=== PATIENT | male | born 1970 | race Caucasian/White ===

== ENCOUNTER 2019-02-27 18:29 | Inpatient (IN) | payer MEDICAID ==
[~2019-02-27] VITALS: Ht 175.3 cm; Wt 69.9 kg
[2019-02-27 18:47] VITALS: BP 149/95
--- NOTE | 2019-02-27 19:22 | NUR ---
Patient transferred to bed 1 via wheelchair by tech. RN evaluating patient at bedside.
--- NOTE | 2019-02-27 19:25 | NUR ---
48 Y/O M PRESENTED TO ED WITH C/O DIZZINESS AND DOUBLE VISION. SYMPTOMS STARTED THIS MORNING. PER PT "MY EQUILIBRIUM IS JUST OFF AND I HAVE MILD RINGING IN MY EARS." AAOX4. SPEECH CLEAR. GCS 15. +CMS. PT HAS HX OF SEIZURES. SEIZURES PRECAUTIONS IN PLACE. BEDRIALS X2 UP. ERMD NOTIFIED. WILL CONTINUE TO MONITOR.
--- NOTE | 2019-02-27 20:10 | NUR ---
PT TAKEN TO CT.
--- NOTE | 2019-02-27 20:35 | NUR ---
PT RETURNED FROM CT.
[2019-02-27 20:36] LABS: BASOPHILS # (AUTO) 0.1 K/uL (0.00-0.22); BASOPHILS % (AUTO) 0.5 % (0.0-2.0); EOSINOPHILS # (AUTO) 0.4 K/uL (0-0.4); EOSINOPHILS % (AUTO) 1.9 % (0.0-4.0); HEMATOCRIT 40.4 % (36-52); HEMOGLOBIN 13.6 g/dL (12.0-18.0); LYMPHOCYTES # (AUTO) 3.4 K/uL (2.0-11.5); LYMPHOCYTES % (AUTO) 16.8 % (20.5-51.1); MEAN CORPUSCULAR HEMOGLOBIN 29 pg (27-31); MEAN CORPUSCULAR HGB CONC 34 g/dL (33-37); MEAN CORPUSCULAR VOLUME 86.6 fL (80-94); NEUTROPHILS # (AUTO) 15.1 K/uL (1.8-7.7); NEUTROPHILS % (AUTO) 75.8 % (42.2-75.2); PLATELET COUNT (AUTO) 239 K/uL (140-450); RED BLOOD CELL COUNT(AUTO) 4.66 MIL/uL (4.20-6.10); RED CELL DISTRIBUTION WIDTH 14.2 % (11.6-13.7); WHITE BLOOD COUNT (AUTO) 19.9 K/uL (4.8-10.8)
[2019-02-27 20:45] LABS: ANION GAP 13.8 (8-16); CARBON DIOXIDE 25.7 mmol/L (21-32); CREATININE 1.2 mg/dL (0.7-1.3); POTASSIUM 3.5 mmol/L (3.5-5.1)
--- NOTE | 2019-02-27 20:50 | NUR ---
PT AWAKE. LYING IN BED. VSS AT THIS TIME. PT C/O BODY SHAKES. DR. MAYKEL ANTHONY. WILL CONTINUE TO MONITOR.
[2019-02-27 20:52] LABS: ALBUMIN 3.7 g/dL (3.4-5.0); TOTAL BILIRUBIN 0.5 mg/dL (0.0-1.0)
[2019-02-27] MEDS ORDERED: LORazepam 2 MG/ML VIAL IVP ONE (20:55)
[2019-02-27 20:57] LABS: APPEARANCE,URINE CLEAR (CLEAR); BILIRUBIN,URINE NEGATIVE (NEGATIVE); BLOOD, URINE NEGATIVE (NEGATIVE); COLOR,URINE YELLOW (YELLOW); LEUKOCYTE ESTERASE ,URINE NEGATIVE (NEGATIVE); NITRITE, URINE NEGATIVE (NEGATIVE); UGLUCOSE NEGATIVE (NEGATIVE)
[2019-02-27 21:00] LABS: PROTHROMBIN TIME 9.9 secs (10.8-13.4)
[2019-02-27] MEDS ORDERED: NACL 0.9% 1,000 ML IV ONE (21:30)
[2019-02-27 21:50] LABS: BARBITURATE, URINE NEG. ng/ml (NEG <=200); BENZODIAZEPINE, URINE NEG. ng/mL (NEG <=200); CANNABINOID, URINE NEG. ng/mL (NEG <=50); COCAINE, URINE NEG. ng/mL (NEG <=300); OPIATE, URINE NEG. ng/mL (NEG <=2000); PHENCYCLIDINE SCREEN,URINE NEG. ng/mL (NEG <=25)
--- NOTE | 2019-02-27 21:55 | NUR ---
DR. BRAR GAVE PERMISSION FOR PT TO EAT. MEAL PROVIDED.
[2019-02-27] MEDS ORDERED: LEVE1000 PO (23:18)
[2019-02-27] MEDS ORDERED: CITA40TA13 PO (23:23)
[2019-02-27] MEDS ORDERED: CLON2TAB PO (23:23)
--- NOTE | 2019-02-27 23:46 | NUR ---
PT AWAKE. VSS AT THIS TIME. WILL CONTINUE TO MONITOR.
[2019-02-27] MEDS ORDERED: ACETAMINOPHEN 325 MG TAB PO PRN (23:55)
[2019-02-27] MEDS ORDERED: ONDANSETRON 4 MG/2 ML VIAL IM/IVP PRN (23:55)
[2019-02-27] MEDS ORDERED: HYDROcodone/APAP 5/325 MG 1 TAB TAB PO PRN (23:55)
[2019-02-27] MEDS ORDERED: DOCUSATE SODIUM 100 MG GELCAP PO PRN (23:55)
[2019-02-27] MEDS ORDERED: LORazepam 2 MG/ML VIAL IM/IVP PRN (23:55)
--- NOTE | 2019-02-28 00:06 | NUR ---
Patient will be admitted to care of Dr. Ervin. Admited to MST. Will go to room 105B. Belongings list completed. VSS at time of transfer. Report to CAM Giles. Transfer of care at this time.
[2019-02-28] MEDS ORDERED: ASPIRIN 81 MG TAB.CHEW PO SCH (00:10)
[2019-02-28 00:15] VITALS: BP 121/76
[2019-02-28] MEDS ORDERED: ATORVASTATIN 80 MG TAB PO SCH (00:15)
[2019-02-28] MEDS ORDERED: CLOPIDOGREL 75 MG TAB PO SCH (00:15)
--- NOTE | 2019-02-28 00:15 | NUR ---
PT ARRIVED TO UNIT VIA GURNEY AND AMBULATED TO BED WITH ASSISTANCE- UNSTEADY, DIZZY. RECEIVED REPORT FROM ER NURSE AT BEDSIDE. PT AOX4, ON ROOM AIR WITH LEFT AC #20G. DISCUSSED PLAN OF CARE AND PT VERBALIZED UNDERSTANDING. NO S/S OF RESPIRATORY DISTRESS OR DISCOMFORT NOTED AT THIS TIME. VITAL SIGNS TAKEN AND TOLERATED WELL. MRSA SWAB COLLECTED. BED IN LOWEST POSITION, BED BREAKS ON, BOTH SIDE RAILS UP AND BOTH FALL AND SEIZURE PRECAUTIONS ARE IN PLACE. BEDSIDE TABLE AND CALL LIGHT ARE WITHIN REACH. EDUCATED PT MOBILE HOME LABORER LIGHT, BED AND URINAL USE. WILL CONTINUE TO MONITOR.
[2019-02-28] MEDS ORDERED: PIPER/TAZO 3.375GM/D5W PREMIX 50 ML IV SCH (00:30)
[2019-02-28] MEDS: NACL 0.9% 1,000 ML IV SCH ×2 (00:47→17:47)
--- NOTE | 2019-02-28 00:48 | NUR ---
SCHEDULED MEDICATIONS GIVEN AND TOLERATED WELL. NEW BAG OF IVF HUNG AND TOLERATED WELL. NO S/S OF RESPIRATORY DISTRESS OR DISCOMFORT NOTED AT THIS TIME. WILL CONTINUE TO MONITOR.
[2019-02-28] MEDS ORDERED: MECLIZINE 25 MG TAB PO SCH (01:00)
--- NOTE | 2019-02-28 01:01 | NUR ---
SCHEDULED MEDICATIONS GIVEN AND TOLERATED WELL. NO S/S OF RESPIRATORY DISTRESS OR DISCOMFORT NOTED AT THIS TIME. WILL CONTINUE TO MONITOR.
[2019-02-28] MEDS ORDERED: PIPERACILLIN/TAZOBACTAM 3.375 GM VIAL IV ONE ×2 (01:05→05:18)
[2019-02-28 01:59] LABS: MAGNESIUM 1.5 mg/dL (1.8-2.4); PHOSPHORUS 3.5 mg/dL (2.5-4.9); THYROID STIMULATING HORMONE 1.35 uIU/mL (0.34-3.74)
[2019-02-28] MEDS ORDERED: LORazepam 2 MG/ML VIAL IVP PRN (02:00)
--- NOTE | 2019-02-28 02:00 | NUR ---
PT SLEEPING IN BED. NO S/S OF RESPIRATORY DISTRESS OR DISCOMFORT NOTED AT THIS TIME. WILL CONTINUE TO MONITOR.
[2019-02-28 04:00] VITALS: BP 98/55
[2019-02-28] MEDS ORDERED: MAG SULF 2000 MG/WATER PREMIX 100 ML IV ONE (04:00)
--- NOTE | 2019-02-28 04:00 | NUR ---
SCHEDULED MEDICATION MAGNESIUM SULFATE IV GIVEN AND TOLERATING WELL. WILL INFUSE SECOND BAG SOON FIRST BAG IS COMPLETED AND SCHEDULED ZOSYN 0600 IS COMPLETED.
[2019-02-28] MEDS: PIPER/TAZO 3.375GM/D5W PREMIX 50 ML IV SCH ×3 (05:21→17:44)
--- NOTE | 2019-02-28 05:21 | NUR ---
SCHEDULED MEDICATION ZOSYN GIVEN AND TOLERATED WELL. NO S/S OF RESPIRATORY DISTRESS OR DISCOMFORT NOTED AT THIS TIME. WILL CONTINUE TO MONITOR.
--- NOTE | 2019-02-28 05:40 | NUR ---
SECOND BAG OF MAGNESIUM SULFATE GIVEN AND TOLERATING WELL. NO S/S OF RESPIRATORY DISTRESS OR DISCOMFORT NOTED AT THIS TIME. WILL CONTINUE TO MONITOR.
--- NOTE | 2019-02-28 07:33 | NUR ---
ENDORSED TO DAY SHIFT NURSE YUAN-RN FOR CONTINUITY OF CARE.
--- NOTE | 2019-02-28 07:34 | NUR ---
REPORT RECEIVED FROM HORSE RACE TIMER, PT SLEEPING QUIETLY IN NAD, AROUSES EASILY, DENIES PAIN, RESP EVEN UNLABORED, SKIN WARM DRY COLOR WNL, DENIES PAIN, POC REVIEWED, ALL SAFETY MEASURES IN PLACE.
[2019-02-28 07:38] LABS: BASOPHILS # (AUTO) 0.1 K/uL (0.00-0.22); BASOPHILS % (AUTO) 0.7 % (0.0-2.0); EOSINOPHILS # (AUTO) 0.6 K/uL (0-0.4); EOSINOPHILS % (AUTO) 4.9 % (0.0-4.0); HEMATOCRIT 37.2 % (36-52); HEMOGLOBIN 12.5 g/dL (12.0-18.0); LYMPHOCYTES # (AUTO) 3.5 K/uL (2.0-11.5); LYMPHOCYTES % (AUTO) 26.8 % (20.5-51.1); MEAN CORPUSCULAR HEMOGLOBIN 29 pg (27-31); MEAN CORPUSCULAR HGB CONC 34 g/dL (33-37); MEAN CORPUSCULAR VOLUME 87.4 fL (80-94); MONOCYTES # (AUTO) 0.7 K/uL (0.8-1.0); MONOCYTES % (AUTO) 5.6 % (1.7-9.3); NEUTROPHILS # (AUTO) 8.1 K/uL (1.8-7.7); PLATELET COUNT (AUTO) 210 K/uL (140-450); RED BLOOD CELL COUNT(AUTO) 4.26 MIL/uL (4.20-6.10); RED CELL DISTRIBUTION WIDTH 14.3 % (11.6-13.7); WHITE BLOOD COUNT (AUTO) 13.1 K/uL (4.8-10.8)
[2019-02-28 08:00] VITALS: BP 110/65
[2019-02-28 08:02] LABS: ANION GAP 12.9 (8-16); CARBON DIOXIDE 25.3 mmol/L (21-32); CREATININE 1.1 mg/dL (0.7-1.3); POTASSIUM 3.2 mmol/L (3.5-5.1)
--- NOTE | 2019-02-28 08:41 | NUR ---
US TECH AT BEDSIDE FOR CAROTID US.
[2019-02-28] MEDS: ASPIRIN 81 MG TAB.CHEW PO SCH (09:30)
[2019-02-28] MEDS: CITALOPRAM 20 MG TAB PO SCH (09:30)
[2019-02-28] MEDS: MECLIZINE 25 MG TAB PO SCH ×3 (09:31→17:44)
[2019-02-28] MEDS: levETIRAcetam 500 MG TAB PO SCH ×2 (09:31→20:21)
[2019-02-28] MEDS: LACTOBACILLUS RHAMNOSUS GG 1 EACH CAP PO SCH (09:31)
[2019-02-28] MEDS: NICOTINE TRANSD SYS 21 MG/24 HR PATCH TD SCH (09:31)
[2019-02-28] MEDS: CLOPIDOGREL 75 MG TAB PO SCH (09:31)
[2019-02-28] MEDS: clonazePAM 0.5 MG TAB PO SCH ×2 (09:36→20:21)
--- NOTE | 2019-02-28 11:45 | NUR ---
FRIENDS AT BEDSIDE, PT TALKING WITH THEM IN NO ACUTE DISTRESS, PT REQUESTS TO HAVE HIS EMERGENCY CONTACT CHANGED TO HIS FRIEND FUAD MARTI AND JOCELYN FRIEDMAN, ADMITTING NOTIFIED. KEEP NEXT OF KIN MOTHER. FUAD KIDD [phone], JOCELYN FRIEDMAN [phone].
[2019-02-28 12:00] VITALS: BP 98/60
--- NOTE | 2019-02-28 13:22 | NUR ---
PT SLEEPING QUIETLY IN NAD, AROUSES EASILY, DENIES PAIN OR DISCOMFORT, DENIES ANY OTHER NEEDS WILL CONTINUE TO MONTIOR.
[2019-02-28 13:44] LABS: CHOL/HDL RATIO 4.3 (1-4.5)
--- NOTE | 2019-02-28 15:10 | NUR ---
DR LANDIN AT BEDSIDE
[2019-02-28 16:00] VITALS: BP 112/67
--- NOTE | 2019-02-28 16:43 | NUR ---
PT TO CT SCAN IN WHEELCHAIR
--- NOTE | 2019-02-28 16:47 | NUR ---
4 UNITS INSULIN GIVEN FOR BS 219, GT FEED ONGOING, NYSTATIN GIVEN PT CLEANING HER MOUTH WITH SPONGE ON HER OWN, APPEARS COMFORTABLE, BILAT HEELS FLOATING WITH HEEL PROTECTORS. Addendum: 02/28/19 at 1752 by Valencia Lezama RN DISREGARD ABOVE NOTE, WRONG PT
[2019-02-28] MEDS ORDERED: POTASSIUM CHLORIDE 10 MEQ TABER PO SCH ×2 (17:00→21:00)
--- NOTE | 2019-02-28 17:30 | NUR ---
PT BACK FROM CT.
--- NOTE | 2019-02-28 17:52 | NUR ---
SCHEDULED MEDS GIVEN, PT STATES DIZZINESS HAS IMPROVED SOME WHEN HE GETS UP. PT NOW SITTING UP TO EAT DINNER.
--- NOTE | 2019-02-28 19:16 | NUR ---
REPORT GIVEN TO ELECTRONICS MECHANIC NURSE, PT IN STABLE CONDITION.
--- NOTE | 2019-02-28 19:20 | NUR ---
PT. AWAKE AND WATCHING TV. ABLE TO CARRY CONVERSATION WITH ME. CALL LIGHT WITH IN REACH. NO COMPLAINT DONE OF DIZZINESS OR NAUSEA. ENCOURAGED TO USE CALL LIGHT FOR HELP OR IF IN PAIN. TELEMETRY MONITORING. SIDE RAILS OF BED PADDED FOR SEIZURE [id number]. CARDIAC TELEMETRY MONITORING.
[2019-02-28 20:10] VITALS: BP 121/73
[2019-02-28] MEDS: ATORVASTATIN 80 MG TAB PO SCH (20:36)
--- NOTE | 2019-02-28 20:37 | NUR ---
LIPITOR 80 MG. P.O. NOT SCHEDULED TONIGHT BUT FOR 9 AM.
[2019-03-01] VITALS: BP 112/61
--- NOTE | 2019-03-01 | NUR ---
SLEEPING WELL. NO RESTLESSNESS. CALL LIGHT WITH IN REACH.
[2019-03-01] MEDS: PIPER/TAZO 3.375GM/D5W PREMIX 50 ML IV SCH ×3 (00:14→12:56)
[2019-03-01] MEDS: NACL 0.9% 1,000 ML IV SCH (00:23)
--- NOTE | 2019-03-01 02:01 | NUR ---
SLEEPING. NO RESTLESSNESS NOTED. CALL LIGHT WITH IN REACH.
[2019-03-01 04:18] VITALS: BP 110/72
--- NOTE | 2019-03-01 05:11 | NUR ---
BEEN SLEEPING GOOD THIS SHIFT. WAKES UP EASILY WHEN TOUCHED OR CALLED BY NAME. NO COMPLAINTS DONE OF DIZZINESS. A/O X 4. ROM X 4. ABLE TO HOLD A CONVERSATION WELL.TELEMETRY MONITORING. WILL ENDORSE TO AM RN FOR CONTINUITY OF CARE.
--- NOTE | 2019-03-01 07:14 | NUR ---
ENDORSED TO AM RN FOR CONTINUITY OF CARE. ABLE TO VERBALIZE NEEDS WELL. A/O X 4. SLEPT WELL THIS SHIFT. NO COMPLAINTS DONE.
--- NOTE | 2019-03-01 07:15 | NUR ---
REPORT RECEIVED FROM TOASTER OPERATOR NURSE, PT SLEEPING QUIETLY IN NAD, RESP EVEN UNLABORED, SKIN WARM DRY COLOR WNL, PT AROUSES EASILY, DENIES PAIN OR DISCOMFORT, POC REVIEWED, DENIES ANY IMMEDIATE NEEDS, WILL CONTINUE TO MONITOR.
[2019-03-01 07:43] LABS: BASOPHILS # (AUTO) 0.1 K/uL (0.00-0.22); BASOPHILS % (AUTO) 1.1 % (0.0-2.0); EOSINOPHILS # (AUTO) 0.5 K/uL (0-0.4); EOSINOPHILS % (AUTO) 5.3 % (0.0-4.0); HEMATOCRIT 39.6 % (36-52); HEMOGLOBIN 13.4 g/dL (12.0-18.0); LYMPHOCYTES # (AUTO) 3.4 K/uL (2.0-11.5); LYMPHOCYTES % (AUTO) 32.8 % (20.5-51.1); MEAN CORPUSCULAR HEMOGLOBIN 29 pg (27-31); MEAN CORPUSCULAR HGB CONC 34 g/dL (33-37); MEAN CORPUSCULAR VOLUME 87.2 fL (80-94); MONOCYTES # (AUTO) 0.6 K/uL (0.8-1.0); MONOCYTES % (AUTO) 5.6 % (1.7-9.3); NEUTROPHILS # (AUTO) 5.7 K/uL (1.8-7.7); NEUTROPHILS % (AUTO) 55.2 % (42.2-75.2); PLATELET COUNT (AUTO) 212 K/uL (140-450); RED BLOOD CELL COUNT(AUTO) 4.54 MIL/uL (4.20-6.10); RED CELL DISTRIBUTION WIDTH 14.3 % (11.6-13.7); WHITE BLOOD COUNT (AUTO) 10.3 K/uL (4.8-10.8)
--- NOTE | 2019-03-01 07:45 | NUR ---
PATIENT HAS BEEN SCREENED AND CATEGORIZED LOW NUTRITION RISK. PATIENT WILL BE SEEN WITHIN 7 DAYS OF ADMISSION. 03/06/19
[2019-03-01 07:50] LABS: ANION GAP 12.7 (8-16); CREATININE 1.1 mg/dL (0.7-1.3); POTASSIUM 3.7 mmol/L (3.5-5.1)
[2019-03-01 07:53] LABS: MAGNESIUM 1.7 mg/dL (1.8-2.4); PHOSPHORUS 2.7 mg/dL (2.5-4.9)
[2019-03-01 08:00] VITALS: BP 120/68
[2019-03-01] MEDS ORDERED: MAG SULF 2000 MG/WATER PREMIX 100 ML IV ONE (08:45)
[2019-03-01] MEDS ORDERED: MAGNESIUM SULFATE 4GM in STERILE WATER 100 ML PREMIX IV SCH (09:00)
[2019-03-01] MEDS: NICOTINE TRANSD SYS 21 MG/24 HR PATCH TD SCH (09:01)
[2019-03-01] MEDS: LACTOBACILLUS RHAMNOSUS GG 1 EACH CAP PO SCH (09:02)
[2019-03-01] MEDS: CLOPIDOGREL 75 MG TAB PO SCH (09:02)
[2019-03-01] MEDS: ASPIRIN 81 MG TAB.CHEW PO SCH (09:02)
[2019-03-01] MEDS: CITALOPRAM 20 MG TAB PO SCH (09:02)
[2019-03-01] MEDS: ATORVASTATIN 80 MG TAB PO SCH (09:02)
[2019-03-01] MEDS: levETIRAcetam 500 MG TAB PO SCH (09:02)
[2019-03-01] MEDS: MECLIZINE 25 MG TAB PO SCH ×2 (09:02→13:00)
--- NOTE | 2019-03-01 09:09 | NUR ---
AM MEDS GIVEN, PT CHANTELL PILLS WELL, NICOTINE PATCH APPLIED TO RIGHT UPPER ARM, OLD PATCH NO LONGER ATTACHED ON LEFT ARM.
[2019-03-01] MEDS: clonazePAM 0.5 MG TAB PO SCH (09:11)
--- NOTE | 2019-03-01 10:55 | NUR ---
PATIENT CARRIER AT BEDSIDE
--- NOTE | 2019-03-01 12:45 | NUR ---
ECHO CARDIOGRAM AT BEDSIDE
--- NOTE | 2019-03-01 14:16 | NUR ---
DR LANDIN AT BEDSIDE.
--- NOTE | 2019-03-01 14:24 | NUR ---
PER DR LANDIN, EEG WAS REVIEWED, PT IS OK TO DISCHARGE PER NEUROLOGY CONSULT, WILL NOTIFY DR MCCARTY.
--- NOTE | 2019-03-01 14:26 | NUR ---
PT UP OUT OF BED WITH OUT PROBLEM, PT AMBULATED AROUND THE HALLWAY WITH BRISK STEADY GAIT, PT DENIES FEELING LIGHT HEADED OR DIZZY, DENIES SEEING DOUBLE VISION, WILL NOTIFY MD.
[2019-03-01] MEDS ORDERED: AZIT500T4 PO (15:34)
[2019-03-01] MEDS ORDERED: CLOP75TA55 PO (15:34)
[2019-03-01] MEDS ORDERED: AMOX-999 PO (15:34)
[2019-03-01] MEDS ORDERED: LIP80 PO (15:34)
[2019-03-01] MEDS ORDERED: LACT10CA PO (15:34)
[2019-03-01] MEDS ORDERED: NICO-532 TD (15:34)
[2019-03-01] MEDS ORDERED: ASPI81CT95 PO (15:34)
[2019-03-01] MEDS ORDERED: AZIT250T4 PO (15:34)
--- NOTE | 2019-03-01 16:08 | NUR ---
DC ORDER RECEIVED, PT MADE AWARE OF PLAN, IV DC'D, CATH TIP INTACT, BLEEDING CONTORLLED, PT UP CHANGING CLOTHES WITHOUT PROBLEM.
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
[2019-03-03 06:12] LABS: T4 (THYROXINE) 5.5 ug/dL (4.5-12.0)
== END 2019-03-01 17:10 | disposition home or self-care (01) | DRG 48 ==
LOC: MED 18:29 → MTU 23:54
PROVIDERS: ADMIT General Practice; ATTEND General Practice
DX: G90.8 Other disorders of autonomic nervous system (principal); J18.9 Pneumonia, unspecified organism; G45.9 Transient cerebral ischemic attack, unspecified; E83.42 Hypomagnesemia; E86.0 Dehydration; F17.210 Nicotine dependence, cigarettes, uncomplicated; M54.81 Occipital neuralgia; G40.909 Epilepsy, unspecified, not intractable, without status epilepticus; Z79.899 Other long term (current) drug therapy; Z71.6 Tobacco abuse counseling
CPT/HCPCS: 36415; 70450; 70460; 71045; 80048; 80053; 80305; 81003; 82150; 83036; 83605; 83690; 83735; 83880; 84100; 84134; 84436; 84443; 84484; 85025; 85610; 85730; 86592; 86886; 86900; 86901; 87040; 87070; 87081; 87205; 89220; 93005; 93880; 95816; 96374; 99285; G0482; J2060; J2543; J3475; J7030; J7060; J8597; Q0092

== ENCOUNTER 2019-04-15 11:18 | Emergency (ER) | payer MEDICAID ==
[~2019-04-15] VITALS: Ht 175.3 cm; Wt 68.3 kg
[~2019-04-15 11:18] MED LIST: AMOX-999 PO; ASPI81CT95 PO; AZIT250T4 PO; AZIT500T4 PO; CITA40TA13 PO; CLON2TAB PO; CLOP75TA55 PO; LACT10CA PO; LEVE1000 PO; LIP80 PO; NICO-532 TD
[2019-04-15 11:34] VITALS: BP 113/75
--- NOTE | 2019-04-15 12:00 | NUR ---
IV STARTED TO L AC 20G, PT TOLERATED PROCEDURE WELL. LABS WERE DRAWN FROM IV SITE
--- NOTE | 2019-04-15 12:10 | NUR ---
C/O GENERALIZED WEAKNESS/UNSTEADY GAIT STARTING TODAY. PT WAS BROUGHT IN BY FRIEND WHO REPORTS HE WAS ADMITTED LAST MONTH FOR THE SAME SYMPTOMS AND WAS TOLD HE HAD A "MINI STROKE". NO UNILATERAL WEAKNESS NOTED, NO FACIAL DROOP NOTED. PT IS A & O X4 AND ANSWERING QUESTIONS APPROPRIATELY. PT STATES HE RECENTLY RAN OUT OF HIS MEDICATIONS 4 DAYS AGO, INCLUDING CLONAZEPAM AND KEPPRA. PT STATES HE HAS A HX OF SEIZUREZ, LAST ONE WAS LAST NIGHT - "PETITE MAL". PT STATES HE IS A RECOVERING ALCOHOLIC AND CURRENTLY LIVES IN A 2ND STAGE REHAB FACILITY. PT DENIES RECENT DRUG/ALCOHOL USE. BED IN LOW POSITION, SEIZURE PRECAUTIONS IMPLEMENTED. PT POSITIONGED FOR COMFORT AND SIDE RAILS UP X2 WITH SEIZURE PADS IN PLACE.
[2019-04-15] MEDS ORDERED: LORazepam 2 MG/ML VIAL IVP ONE (12:15)
[2019-04-15] MEDS ORDERED: NACL 0.9% 1,000 ML IV ONE ×2 (12:15→14:45)
--- NOTE | 2019-04-15 12:15 | NUR ---
DR. TERRY AT BEDSIDE EVALUATING PT
[2019-04-15] MEDS ORDERED: levETIRAcetam 500 MG in NACL 0.9% 100 ML IV STA (12:30)
[2019-04-15 12:35] LABS: BASOPHILS # (AUTO) 0.1 K/uL (0.00-0.22); BASOPHILS % (AUTO) 0.8 % (0.0-2.0); EOSINOPHILS # (AUTO) 0.3 K/uL (0-0.4); EOSINOPHILS % (AUTO) 2.7 % (0.0-4.0); HEMATOCRIT 40.5 % (36-52); HEMOGLOBIN 13.5 g/dL (12.0-18.0); LYMPHOCYTES # (AUTO) 3.4 K/uL (2.0-11.5); LYMPHOCYTES % (AUTO) 31.2 % (20.5-51.1); MEAN CORPUSCULAR HEMOGLOBIN 30 pg (27-31); MEAN CORPUSCULAR HGB CONC 33 g/dL (33-37); MEAN CORPUSCULAR VOLUME 90.2 fL (80-94); MONOCYTES # (AUTO) 0.4 K/uL (0.8-1.0); MONOCYTES % (AUTO) 4.1 % (1.7-9.3); NEUTROPHILS # (AUTO) 6.6 K/uL (1.8-7.7); NEUTROPHILS % (AUTO) 61.2 % (42.2-75.2); PLATELET COUNT (AUTO) 237 K/uL (140-450); RED BLOOD CELL COUNT(AUTO) 4.49 MIL/uL (4.20-6.10); WHITE BLOOD COUNT (AUTO) 10.8 K/uL (4.8-10.8)
[2019-04-15 12:48] LABS: ANION GAP 13.1 (8-16); CARBON DIOXIDE 26.1 mmol/L (21-32); CREATININE 1.1 mg/dL (0.7-1.3); POTASSIUM 3.2 mmol/L (3.5-5.1)
[2019-04-15] MEDS ORDERED: levETIRAcetam 100 MG/ML VIAL IV ONE (12:53)
[2019-04-15 12:54] LABS: ALBUMIN 3.7 g/dL (3.4-5.0); TOTAL BILIRUBIN 0.2 mg/dL (0.0-1.0)
--- NOTE | 2019-04-15 14:17 | NUR ---
PT ASLEEP IN BED, AROUSABLE TO VERBAL STIMULI. PT STATES 0/10 PAIN AT THIS TIME.
--- NOTE | 2019-04-15 14:25 | NUR ---
PT BP 93/46, PT IS ASLEEP BUT IS AROUSABLE TO VERBAL STIMULI. DR. TERRY AWARE, AND WILL ORDER 1L NS BOLUS
--- NOTE | 2019-04-15 15:00 | NUR ---
PT IS AWAKE AND TALKING ON CELL PHONE
--- NOTE | 2019-04-15 16:31 | NUR ---
PT RESTING IN BED, AROUSABLE TO VERBAL STIMULI.
[2019-04-15 19:00] VITALS: BP 103/61
--- NOTE | 2019-04-15 19:00 | NUR ---
Patient discharged with v/s stable. Written and verbal after care instructions given and explained. Patient alert, oriented and verbalized understanding of instructions. Ambulatory with steady gait. All questions addressed prior to discharge. ID band removed. Patient advised to follow up with PMD. Rx of keeduard given. Patient educated on indication of medication including possible reaction and side effects. Opportunity to ask questions provided and answered.
[2019-04-15] MEDS ORDERED: levETIRAcetam 500 MG in NACL 0.9% 100 ML IV SCH (21:00)
== END 2019-04-15 19:00 | disposition home or self-care (01) ==
LOC: MED 11:18
DX: F10.129 Alcohol abuse with intoxication, unspecified (principal); G40.909 Epilepsy, unspecified, not intractable, without status epilepticus; Z86.73 Personal history of transient ischemic attack (TIA), and cerebral infarction without residual deficits; Z79.2 Long term (current) use of antibiotics; Z79.899 Other long term (current) drug therapy; Z79.82 Long term (current) use of aspirin; Z91.14 Patient's other noncompliance with medication regimen
CPT/HCPCS: 36415; 80053; 81002; 85025; 96365; 96375; 99283; G0482; J1953; J2060; J7030

== ENCOUNTER 2019-05-31 21:20 | Emergency (ER) | payer MEDICAID ==
[~2019-05-31] VITALS: Ht 175.3 cm; Wt 70.3 kg
[2019-05-31 21:28] VITALS: BP 139/72
--- NOTE | 2019-05-31 21:29 | NUR ---
PLACED INTO CHAIR, PENDING ED BED PLACEMENT. REMAINS ON PORTABLE VS MONITOR.
--- NOTE | 2019-05-31 22:16 | NUR ---
PT PLACED IN ER BED 7, SEIZURE PRECAUTIONS IN PLACE.
--- NOTE | 2019-05-31 22:17 | NUR ---
48/M PRESENTED TO ED C/O ETOH. STATES DRANK 2 BUDLIGHT BEERS TO CALM NERVES. SAYS HE FEELS "SHAKY". CMS INTACT. VSS. MED HX EPILEPSY, CVA X 2 MOS AGO. RX KEPPRA, LORAZEPAM, GABAPENTIN BUT STATES HE HAS NOT BEEN TAKING MEDICATIONS IN THE LAST 3 DAYS DUE TO NO TRANSPORTATION. DENIES ALLERGIES. SEIZURE PRECAUTIONS IN PLACE. WILL CONTINUE TO MONITOR.
--- NOTE | 2019-05-31 22:20 | NUR ---
PT REMEMBERED ADDITIONAL RX CLOPIDOGREL, ATORVASTATIN. LAST SEIZURE WAS X3DAYS AGO. VSS.
--- NOTE | 2019-05-31 23:22 | NUR ---
IV ESTABLISHED. L FA 20G. TOLERATED WELL. PATENT AND INTACT. LABS COLLECTED.
[2019-05-31 23:51] LABS: BASOPHILS # (AUTO) 0.1 K/uL (0.00-0.22); BASOPHILS % (AUTO) 0.5 % (0.0-2.0); EOSINOPHILS # (AUTO) 0.6 K/uL (0-0.4); EOSINOPHILS % (AUTO) 4.1 % (0.0-4.0); HEMATOCRIT 37.6 % (36-52); HEMOGLOBIN 12.8 g/dL (12.0-18.0); LYMPHOCYTES # (AUTO) 5.4 K/uL (2.0-11.5); LYMPHOCYTES % (AUTO) 35.3 % (20.5-51.1); MEAN CORPUSCULAR HEMOGLOBIN 30 pg (27-31); MEAN CORPUSCULAR HGB CONC 34 g/dL (33-37); MEAN CORPUSCULAR VOLUME 88.4 fL (80-94); MONOCYTES # (AUTO) 0.8 K/uL (0.8-1.0); MONOCYTES % (AUTO) 5.6 % (1.7-9.3); NEUTROPHILS # (AUTO) 8.3 K/uL (1.8-7.7); NEUTROPHILS % (AUTO) 54.5 % (42.2-75.2); PLATELET COUNT (AUTO) 225 K/uL (140-450); RED BLOOD CELL COUNT(AUTO) 4.25 MIL/uL (4.20-6.10); RED CELL DISTRIBUTION WIDTH 14.3 % (11.6-13.7); WHITE BLOOD COUNT (AUTO) 15.2 K/uL (4.8-10.8)
--- NOTE | 2019-06-01 00:01 | NUR ---
PT RESTING IN BED, VSS.
[2019-06-01 00:13] LABS: ALBUMIN 3.1 g/dL (3.4-5.0); ANION GAP 10.9 (8-16); ASPARTATE AMINOTRANSFERASE 101 U/L (15-37); CARBON DIOXIDE 31.1 mmol/L (21-32); CHLORIDE 104 mmol/L (98-107); CREATININE 1.1 mg/dL (0.7-1.3); GFR ARICAN-AMERICAN 91 mL/min (>90); GLUCOSE 116 mg/dL (74-106); SALICYLATE 3.5 mg/dL (2.8-20.0); SODIUM SERUM 143 mmol/L (136-145); TOTAL BILIRUBIN 0.3 mg/dL (0.0-1.0); UREA NITROGEN, BLOOD 6 mg/dL (7-18)
--- NOTE | 2019-06-01 00:13 | NUR ---
DR VILLA EXAMINING PT
[2019-06-01 00:16] LABS: ACETAMINOPHEN < 0.5 ug/ml (10-30)
[2019-06-01 01:12] LABS: CKMB RELATIVE INDEX 0.2 (0.0-2.5); CREATINE KINASE MB 4.7 ng/mL (0-3.6)
[2019-06-01] MEDS: NACL 0.9% 2,000 ML IV ONE (01:47)
--- NOTE | 2019-06-01 02:20 | NUR ---
PT SLEEPING IN BED. NO SIGNS OF RESP DISTRESS. VSS. WILL CONTINUE TO MONITOR.
--- NOTE | 2019-06-01 03:37 | NUR ---
PT SLEEPING IN BED. VSS. NO SIGNS OF DISTRESS.
--- NOTE | 2019-06-01 04:27 | NUR ---
VSS. NO SIGNS OF DISTRESS NOTED. WILL CONTINUE TO MONITOR.
--- NOTE | 2019-06-01 05:20 | NUR ---
RT AT BEDSIDE
[2019-06-01] MEDS: ALBUTEROL SULFATE/IPRATROPIU 3 ML SOL IH ONE (05:24)
[2019-06-01] MEDS ORDERED: cefTRIAXone 1,000 MG VIAL ONE (05:55)
[2019-06-01] MEDS: AZITHROMYCIN 250 MG TAB PO ONE (06:23)
--- NOTE | 2019-06-01 07:09 | NUR ---
RECEIVED REPORT FROM GILBERT LEVY
--- NOTE | 2019-06-01 07:31 | NUR ---
PT SLEEPING IN BED, ARROUSABLE TO NAME, VSS, RR EVEN AND NON-LABORED, MOIST COUGH PRESNT, CRACKLES PRESENT THROUGHOUT ON INHALATION, 02 SAT AT 99% ON 2L NC.
--- NOTE | 2019-06-01 08:00 | NUR ---
CALLED [facility] @ [phone], WAS TOLD TO CALL BACK IN 10 MINUTES
--- NOTE | 2019-06-01 08:16 | NUR ---
GAVE REPORT TO RAAD LEVY AT [facility]
--- NOTE | 2019-06-01 08:58 | NUR ---
INFORMED ER MD OF POTASSIUM AT 3.0. PER ER MD, VERBAL ORDER FOR 20MEQ POTASSIUM PO ONE TIME, ORDER READ BACK.
[2019-06-01] MEDS ORDERED: POTASSIUM CHLORIDE 10 MEQ TABER PO ONE (09:04)
[2019-06-01] MEDS: POTASSIUM CHLORIDE 10 MEQ TABER PO ONE ×2 (09:05)
[2019-06-01 09:06] VITALS: BP 109/60
--- NOTE | 2019-06-01 09:06 | NUR ---
Patient to be transferred to [facility]. Is being transferred due to INSURANCE. Receiving facility has accepting physician and available space. ER physician has signed transfer form. Patient or responsible republican has agreed to transfer and signed form. Patient belongings inventoried and will be sent with patient. Copy of nursing notes, lab reports, EKG, Physicians Orders and X-rays to be sent with patient. [facility] ambulance service has been called for transfer AND IS CURRENTLY PICKING UP PT AT THIS TIME.
== END 2019-06-01 09:06 | disposition short-term general hospital (02) ==
LOC: MED 21:20
DX: J18.9 Pneumonia, unspecified organism (principal); E86.0 Dehydration; F10.129 Alcohol abuse with intoxication, unspecified; Z86.73 Personal history of transient ischemic attack (TIA), and cerebral infarction without residual deficits; Z79.82 Long term (current) use of aspirin; Z79.899 Other long term (current) drug therapy
CPT/HCPCS: 36415; 71045; 80053; 82550; 82553; 84484; 85025; 93005; 94640; 96361; 96365; 99285; G0480; G0482; J0696; J7030; J7060; J7620; Q0092; 99283

== ENCOUNTER 2019-06-05 19:15 | Emergency (ER) | payer MEDICAID ==
[~2019-06-05] VITALS: Ht 175.3 cm; Wt 70.3 kg
[~2019-06-05 19:15] MED LIST changes: -AMOX-999 PO; -AZIT250T4 PO; -AZIT500T4 PO; -LACT10CA PO; -NICO-532 TD
--- NOTE | 2019-06-05 19:15 | NUR ---
PT BIBA BLS TO ER BED 02
[2019-06-05 19:20] VITALS: BP 130/66
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
[2019-06-05] MEDS ORDERED: KETOROLAC 60 MG/2 ML VIAL IM ONE (19:45)
--- NOTE | 2019-06-05 20:11 | NUR ---
Patient discharged with v/s stable. Written and verbal after care instructions given and explained. Patient alert, oriented and verbalized understanding of instructions. Ambulatory with steady gait. All questions addressed prior to discharge. ID band removed. Patient advised to follow up with PMD. Rx of [place] and motrin given. Patient educated on indication of medication including possible reaction and side effects. Opportunity to ask questions provided and answered.
[2019-06-05 20:12] VITALS: BP 111/60
== END 2019-06-05 20:11 | disposition home or self-care (01) ==
LOC: MED 19:15
DX: S00.83XA Contusion of other part of head, initial encounter (principal); S20.212A Contusion of left front wall of thorax, initial encounter; F17.210 Nicotine dependence, cigarettes, uncomplicated; Z86.73 Personal history of transient ischemic attack (TIA), and cerebral infarction without residual deficits; Z86.69 Personal history of other diseases of the nervous system and sense organs; Z79.82 Long term (current) use of aspirin; Z79.899 Other long term (current) drug therapy; Y04.8XXA Assault by other bodily force, initial encounter; Y93.89 Activity, other specified; Y92.89 Other specified places as the place of occurrence of the external cause; Y99.8 Other external cause status
CPT/HCPCS: 96372; 99283; J1885

== ENCOUNTER 2019-06-06 21:43 | Emergency (ER) | payer MEDICAID ==
[~2019-06-06] VITALS: Ht 177.8 cm; Wt 70.3 kg
[2019-06-06 21:43] VITALS: BP 122/69
--- NOTE | 2019-06-06 21:44 | NUR ---
PT BIBA TO BED 04.
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
--- NOTE | 2019-06-06 21:58 | NUR ---
PT PUT ON SEIZURE PRECAUTIONS, PADS IN PLACE, SAFETY MEASURES IN PLACE. ER MADE AWARE
[2019-06-06] MEDS ORDERED: KETOROLAC 60 MG/2 ML VIAL IM ONE (22:05)
--- NOTE | 2019-06-06 22:39 | NUR ---
PT RESTING IN BED COMFORTABLY WITH EYES OPEN. VSS. WILL CONTINUE TO MONITOR.
--- NOTE | 2019-06-06 23:20 | NUR ---
PT RESTING IN BED WITH EYES CLOSED, EASILY ARROUSABLE. VSS. WILL CONTINUE TO MONITOR.
--- NOTE | 2019-06-07 00:50 | NUR ---
PT RESTING IN BED WITH EYES CLOSED, EASILY ARROUSABLE. VSS. WILL CONTINUE TO MONITOR.
--- NOTE | 2019-06-07 02:06 | NUR ---
PT RESTING IN BED. VSS. WILL CONTINUE TO MONITOR.
--- NOTE | 2019-06-07 03:40 | NUR ---
PT IN BED RESTING COMFORTABLY. ALL NEEDS MET AT THIS TIME. VSS. WILL CONTINUE TO MONITOR.
--- NOTE | 2019-06-07 05:00 | NUR ---
PT RESTING IN BED COMFORTABLY, EASILY ARROUSABLE. WILL CONTINUE TO MONITOR.
--- NOTE | 2019-06-07 06:54 | NUR ---
PT RESTING IN BED. VSS. WILL CONTINUE TO MONITOR.
--- NOTE | 2019-06-07 07:08 | NUR ---
RECEIVED REPORT FROM VERONICA LEVY
--- NOTE | 2019-06-07 07:47 | NUR ---
ER AT BEDSIDE
[2019-06-07] MEDS ORDERED: IBUPROFEN 800 MG TAB PO ONE (07:50)
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
--- NOTE | 2019-06-07 09:09 | NUR ---
PT SLEEPING IN BED, AROUSABLE BY NAME, VSS. PT REPORTS MOTRIN HAS REDUCED PAIN TO 6/10. PT HAS BREAKFAST AT BEDSIDE TABLE, STATES HE DOES NOT WANT TO EAT AT THIS TIME.
--- NOTE | 2019-06-07 10:44 | NUR ---
CALLED SECURITY FOR [place] FOR PT.
[2019-06-07 10:48] VITALS: BP 98/53
--- NOTE | 2019-06-07 10:48 | NUR ---
Patient discharged with v/s stable. Written and verbal after care instructions given and explained. Patient alert, oriented and verbalized understanding of instructions. Ambulatory with steady gait. All questions addressed prior to discharge. ID band removed. Patient advised to follow up with PMD. Rx of IBUPROFEN given. Patient educated on indication of medication including possible reaction and side effects. Opportunity to ask questions provided and answered. Addendum: 06/07/19 at 1050 by [facility] PT PROVIDED WITH T-SHIRT, HOMELESS PACKET WITH LIST OF SHELTERS, AND GIVEN FOOD WHILE IN ED.
--- NOTE | 2019-06-07 10:48 | NUR ---
Patient provided with new t-shirt prior to discharge.
[2019-06-08] MEDS ORDERED: ASPI81CT95 PO (16:40)
== END 2019-06-07 10:48 | disposition home or self-care (01) ==
LOC: MED 21:43
DX: S40.011A Contusion of right shoulder, initial encounter (principal); S50.11XA Contusion of right forearm, initial encounter; S30.810A Abrasion of lower back and pelvis, initial encounter; S80.812A Abrasion, left lower leg, initial encounter; S80.811A Abrasion, right lower leg, initial encounter; S40.812A Abrasion of left upper arm, initial encounter; S40.811A Abrasion of right upper arm, initial encounter; F10.129 Alcohol abuse with intoxication, unspecified; F17.200 Nicotine dependence, unspecified, uncomplicated; Z79.899 Other long term (current) drug therapy; Z79.82 Long term (current) use of aspirin; Z86.73 Personal history of transient ischemic attack (TIA), and cerebral infarction without residual deficits; Z86.69 Personal history of other diseases of the nervous system and sense organs; Y08.89XA Assault by other specified means, initial encounter; Y93.89 Activity, other specified; Y92.89 Other specified places as the place of occurrence of the external cause; Y99.8 Other external cause status
CPT/HCPCS: 96372; 99283; J1885

== ENCOUNTER 2019-06-08 08:25 | Inpatient (IN) | payer MEDICAID ==
[~2019-06-08] VITALS: Ht 175.3 cm; Wt 70.3 kg
[2019-06-08 08:39] VITALS: BP 118/65
--- NOTE | 2019-06-08 08:41 | NUR ---
PT PLACED IN W/C AND PLACED IN ER LOBBY TO WAIT FOR AVAILABLE BED.
--- NOTE | 2019-06-08 09:38 | NUR ---
Pt w/c assisted to bed 11.
--- NOTE | 2019-06-08 09:39 | NUR ---
PER PT FELL IN FRONT OF THE ER C/O PASSING OUT, WEAKNESS AND SHAKINESS SINCE LAST NIGHT, BL FLANK PAIN HX: SEIZURE, TIA RX: CLONAZEPAM, KEPPRA (OUT OF MEDS 10 DAYS)
[2019-06-08] MEDS ORDERED: LORazepam 2 MG/ML VIAL IVP ONE (09:55)
[2019-06-08] MEDS ORDERED: NACL 0.9% 1,000 ML IV ONE (09:55)
[2019-06-08] MEDS ORDERED: levETIRAcetam 1,000 MG in NACL 0.9% 100 ML IV ONE (10:15)
[2019-06-08 10:25] LABS: BASOPHILS # (AUTO) 0.1 K/uL (0.00-0.22); BASOPHILS % (AUTO) 0.9 % (0.0-2.0); EOSINOPHILS % (AUTO) 0.2 % (0.0-4.0); HEMATOCRIT 41.4 % (36-52); LYMPHOCYTES # (AUTO) 1.8 K/uL (2.0-11.5); LYMPHOCYTES % (AUTO) 14.3 % (20.5-51.1); MEAN CORPUSCULAR HEMOGLOBIN 30 pg (27-31); MEAN CORPUSCULAR HGB CONC 34 g/dL (33-37); MEAN CORPUSCULAR VOLUME 89.2 fL (80-94); MONOCYTES # (AUTO) 0.6 K/uL (0.8-1.0); NEUTROPHILS # (AUTO) 10.3 K/uL (1.8-7.7); NEUTROPHILS % (AUTO) 79.6 % (42.2-75.2); PLATELET COUNT (AUTO) 245 K/uL (140-450); RED BLOOD CELL COUNT(AUTO) 4.64 MIL/uL (4.20-6.10); RED CELL DISTRIBUTION WIDTH 14.7 % (11.6-13.7); WHITE BLOOD COUNT (AUTO) 12.9 K/uL (4.8-10.8)
[2019-06-08] MEDS ORDERED: levETIRAcetam 100 MG/ML VIAL IV ONE (10:31)
[2019-06-08 10:34] LABS: ANION GAP 15.9 (8-16); CARBON DIOXIDE 27.4 mmol/L (21-32); CHLORIDE 100 mmol/L (98-107); CREATININE 1.2 mg/dL (0.7-1.3); GFR ARICAN-AMERICAN 82 mL/min (>90); GLUCOSE 104 mg/dL (74-106); POTASSIUM 3.3 mmol/L (3.5-5.1); SODIUM SERUM 140 mmol/L (136-145); UREA NITROGEN, BLOOD 13 mg/dL (7-18)
[2019-06-08 10:40] LABS: ALBUMIN 3.7 g/dL (3.4-5.0); ASPARTATE AMINOTRANSFERASE 125 U/L (15-37); LIPASE 173 U/L (73-393); TOTAL BILIRUBIN 1.4 mg/dL (0.0-1.0)
--- NOTE | 2019-06-08 13:16 | NUR ---
PT RESTING IN BED, VSS. STATES NO PAIN AT THIS TIME.
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
[2019-06-08] MEDS ORDERED: HYDROcodone/APAP 5/325 MG 1 TAB TAB PO ONE (13:55)
[2019-06-08] MEDS ORDERED: ACETAMINOPHEN 325 MG TAB PO PRN (14:55)
[2019-06-08] MEDS ORDERED: ONDANSETRON 4 MG/2 ML VIAL IVP PRN (14:55)
--- NOTE | 2019-06-08 15:16 | NUR ---
RECEIVED BEDSIDE REPORT FROM ER NURSE. PATIENT IS AWAKE, ALERT AND ORIENTEDX4. NO SIGNS OF DISTRESS ON RA. SKIN HAS MULTIPLE SCABS. TELE MONITOR IN PLACE. FALL RISK PROTOCOL IN PLACE. SEIZURE PRECAUTIONS IN PLACE. PATIENT IS CONTINENT. BED IN LOW POSITION. CALL LIGHT WITHIN REACH. WILL CONTINUE TO MONITOR. MRSA SWAB DONE
--- NOTE | 2019-06-08 15:21 | NUR ---
Patient will be admitted to care of DR CAMARENA. Admited to TELE. Will go to room 112A. Belongings list completed. Report to CRYSTAL LEVY AT 1518.
[2019-06-08 15:30] VITALS: BP 132/62
[2019-06-08 16:14] LABS: FREE T4 (FREE THYROXINE) 0.89 ng/dL (0.76-1.46); MAGNESIUM 1.6 mg/dL (1.8-2.4); PHOSPHORUS 2.4 mg/dL (2.5-4.9); THYROID STIMULATING HORMONE 1.37 uIU/mL (0.34-3.74)
[2019-06-08] MEDS ORDERED: LORazepam 2 MG/ML VIAL IM/IVP SCH (16:30)
[2019-06-08] MEDS ORDERED: MECLIZINE 25 MG TAB PO PRN (16:40)
[2019-06-08] MEDS ORDERED: ASPI81CT95 PO (16:40)
[2019-06-08] MEDS ORDERED: LORazepam 2 MG/ML VIAL IM/IVP PRN (16:40)
--- NOTE | 2019-06-08 17:00 | NUR ---
ADMINISTERED LAURO ATIVAN. PATIENT TOLERATED WELL. EDUCATED ON SIDE EFFECTS. WILL CONTINUE TO MONITOR
--- NOTE | 2019-06-08 18:25 | NUR ---
ORTHO VITALS ARE LAYING 130/80 HR 80 SITTING 134/71 HR 85 STANDING 129/80 HR 95
[2019-06-08] MEDS: NACL 0.9% 1,000 ML IV SCH (19:05)
--- NOTE | 2019-06-08 19:18 | NUR ---
GAVE BEDSIDE REPORT TO NEWSPAPER DISTRIBUTOR SUPERVISOR NURSE. PATIENT ENDORSED IN STABLE CONDITION
--- NOTE | 2019-06-08 19:30 | NUR ---
ASSUMED CARE OF PATIENT, AWAKE, ALERT AND ORIENTED. NO COMPLAINS. SHAKING AT LOT. CALL LIGHT WITHIN REACH. NO DISTRESS.
[2019-06-08] MEDS ORDERED: MAGNESIUM OXIDE 400 MG TAB PO SCH (20:00)
[2019-06-08] MEDS ORDERED: SODIUM PHOS / POTASSIUM PHOS 1 PKT PDR PO SCH (20:00)
[2019-06-08] MEDS ORDERED: POTASSIUM CHLORIDE 10 MEQ TABER PO SCH (20:00)
--- NOTE | 2019-06-08 20:00 | NUR ---
VITAL SIGNS STABLE. NO COMPLAINS. CALL LIGHT WITHIN REACH. PLAN OF CARE DISCUSSED WITH PATIENT, VERBALIZED UNDERSTANDING WELL. CARE BOARD UPDATED.
--- NOTE | 2019-06-08 20:45 | NUR ---
TO CT DEPARTMENT VIA WHEELCHAIR ACCOMPANIED BY PAINT PROCESS ENGINEER.
[2019-06-08] MEDS: DOCUSATE SODIUM 100 MG GELCAP PO SCH (20:53)
[2019-06-08] MEDS: HYDROcodone/APAP 7.5/325 MG 1 TAB PO PRN (20:54)
[2019-06-08] MEDS: clonazePAM 0.5 MG TAB PO SCH (20:54)
[2019-06-08] MEDS: levETIRAcetam 500 MG TAB PO SCH (20:55)
--- NOTE | 2019-06-08 21:00 | NUR ---
DUE MEDS GIVEN. ADVISED PATIENT TO NPO AFTER MIDNIGHT FOR US ABDOMEN. CALL LIGHT WITHIN REACH.
[2019-06-08 21:32] VITALS: BP 122/54
[2019-06-08] MEDS ORDERED: traZODone 50 MG TAB PO SCH (22:30)
[2019-06-08] MEDS: traZODone 50 MG TAB PO SCH (22:40)
[2019-06-09 00:36] VITALS: BP 97/51
--- NOTE | 2019-06-09 00:38 | NUR ---
ASLEEP, EASILY AROUSABLE. NO COMPLAINS. VITAL SIGNS STABLE. NPO FOR US OF ABD. IN AM. CALL LIGHT WITHIN REACH.
[2019-06-09 04:31] VITALS: BP 125/79
--- NOTE | 2019-06-09 04:32 | NUR ---
ASLEEP. NO COMPLAINS. VITAL SIGNS STABLE. CALL LIGHT WITHIN REACH.
--- NOTE | 2019-06-09 07:16 | NUR ---
ENDORSED CARE AT BEDSIDE WITH KOFI RN, PATIENT IN STABLE CONDITION.
--- NOTE | 2019-06-09 07:17 | NUR ---
RECEIVED BEDSIDE REPORT FROM RN RESOURCE NURSE NURSE. PATIENT IS AWAKE, ALERT AND ORIENTEDX4. NO SIGNS OF DISTRESS ON RA. SKIN HAS MULTIPLE SCABS. IV ON L AC 20G INFUSING NS AT 70. CLEAN, DRY AND INTACT. PATIENT IS FALL RISK, D/T TREMORS, FALL RISK PRECAUTIONS IN PLACE. CONTINENT. ABLE TO MAKE NEEDS KNOWN. BED IN LOW POSITION. CALL LIGHT WITHIN REACH. WILL CONTINUE TO MONITOR THE PATIENT
[2019-06-09 07:22] LABS: CHOL/HDL RATIO 1.9 (1-4.5); MAGNESIUM 1.6 mg/dL (1.8-2.4); PHOSPHORUS 3.2 mg/dL (2.5-4.9)
[2019-06-09 07:29] LABS: BASOPHILS # (AUTO) 0.1 K/uL (0.00-0.22); BASOPHILS % (AUTO) 0.8 % (0.0-2.0); EOSINOPHILS # (AUTO) 0.2 K/uL (0-0.4); EOSINOPHILS % (AUTO) 3.1 % (0.0-4.0); HEMATOCRIT 33.7 % (36-52); HEMOGLOBIN 11.5 g/dL (12.0-18.0); LYMPHOCYTES % (AUTO) 42.2 % (20.5-51.1); MEAN CORPUSCULAR HEMOGLOBIN 31 pg (27-31); MEAN CORPUSCULAR HGB CONC 34 g/dL (33-37); MEAN CORPUSCULAR VOLUME 90.6 fL (80-94); MONOCYTES # (AUTO) 0.5 K/uL (0.8-1.0); MONOCYTES % (AUTO) 7.7 % (1.7-9.3); NEUTROPHILS # (AUTO) 3.3 K/uL (1.8-7.7); NEUTROPHILS % (AUTO) 46.2 % (42.2-75.2); PLATELET COUNT (AUTO) 155 K/uL (140-450); RED BLOOD CELL COUNT(AUTO) 3.72 MIL/uL (4.20-6.10); RED CELL DISTRIBUTION WIDTH 14.6 % (11.6-13.7)
[2019-06-09 07:32] LABS: ANION GAP 9.5 (8-16); CARBON DIOXIDE 28.6 mmol/L (21-32); CREATININE 1.1 mg/dL (0.7-1.3); POTASSIUM 3.1 mmol/L (3.5-5.1)
[2019-06-09 08:00] VITALS: BP 116/60
[2019-06-09] MEDS ORDERED: NON-FORMULARY ITEM (Aspirin 81 MG) PO SCH (09:00)
[2019-06-09] MEDS: DOCUSATE SODIUM 100 MG GELCAP PO SCH ×2 (09:00→20:54)
--- NOTE | 2019-06-09 09:04 | NUR ---
PATIENT HAS BEEN SCREENED AND CATEGORIZED HIGH NUTRITION RISK. PATIENT WILL BE SEEN WITHIN 1-2 DAYS OF ADMISSION. 06/09/19-06/10/[address]
[2019-06-09] MEDS: ATORVASTATIN 80 MG TAB PO SCH (09:53)
[2019-06-09] MEDS: levETIRAcetam 500 MG TAB PO SCH ×2 (09:54→20:54)
[2019-06-09] MEDS: clonazePAM 0.5 MG TAB PO SCH ×2 (09:55→20:55)
[2019-06-09] MEDS: FAMOTIDINE 20 MG TAB PO SCH (09:56)
[2019-06-09] MEDS: ECOTRIN 81 MG TABEC PO SCH (09:56)
[2019-06-09] MEDS: NACL 0.9% 1,000 ML IV SCH (09:57)
--- NOTE | 2019-06-09 09:59 | NUR ---
ADMINISTERED MEDS. EDUCATED ON SIDE EFFECTS. PATIENT REFUSED COLACE. HE SAID HE HAD LOOSE STOOLS. WILL CONTINUE TO MONITOR
--- NOTE | 2019-06-09 11:01 | NUR ---
PATIENT LAYING IN BED. NO SIGNS OF DISTRESS. WILL CONTINUE TO MONITOR THE PATIENT
[2019-06-09] MEDS: HYDROcodone/APAP 7.5/325 MG 1 TAB PO PRN ×3 (11:09→23:22)
[2019-06-09] MEDS ORDERED: POTASSIUM CHLORIDE 10 MEQ TABER PO SCH (11:53)
[2019-06-09] MEDS ORDERED: MAGNESIUM OXIDE 400 MG TAB PO SCH (11:53)
--- NOTE | 2019-06-09 12:22 | NUR ---
ADMINISTERED [facility] MEDS. PATIENT TOLERATED WELL. WILL CONTINUE TO MONITOR THE PATIENT.
[2019-06-09] MEDS ORDERED: POTASSIUM CHLORIDE 40 MEQ, LIDOCAINE MPF 1% - 5 mL VIAL 25 MG in NACL 0.9% 250 ML IV SCH (13:00)
--- NOTE | 2019-06-09 13:21 | NUR ---
ADMINISTERED LAURO K. PATIENT TOLERATING WELL. NO COMPLAINTS. PATIENT GETTING EEG AT THIS TIME.
--- NOTE | 2019-06-09 14:47 | NUR ---
PATIENT SITTING IN BED. NO COMPLAINTS AT THIS TIME. WILL CONTINUE TO MONITOR THE PATIENT
--- NOTE | 2019-06-09 15:48 | NUR ---
PATIENT SITTING IN BED. NO DISTRESS. WILL CONTINUE TO MONITOR
[2019-06-09 16:00] VITALS: BP 122/63
[2019-06-09] MEDS ORDERED: IBUPROFEN 600 MG TAB PO PRN (16:00)
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
--- NOTE | 2019-06-09 18:53 | NUR ---
ADMINISTERED PRN PAIN MED. WILL ENDORSE PROMOTIONS TEAM LEADER TO DO PAIN REASSESSMENT
--- NOTE | 2019-06-09 19:16 | NUR ---
GAVE BEDSIDE REPORT TO INTERNET WEBMASTER NURSE. PATIENT ENDORSED IN STABLE CONDITION. ENDORSED PAIN REASSESSMENT TO INTERNET WEBMASTER NURSE
--- NOTE | 2019-06-09 19:17 | NUR ---
RECEIVED BEDSIDE REPORT FROM AM SHIFT NURSE. PATIENT IS AWAKE, ALERT AND ORIENTED X 4. ABLE TO AMBULATE BUT FALL RISK DUE TO TREMORS. NO SIGNS OF DISTRESS. SKIN HAS MULTIPLE SCABS.PT IS ON RA. IV ON L AC 20G INFUSING NS AT 70. CLEAN, DRY AND INTACT. FALL RISK PRECAUTIONS IN PLACE. ABLE TO MAKE NEEDS KNOWN. BED IN LOW POSITION. CALL LIGHT WITHIN REACH. WILL CONTINUE TO MONITOR THE PATIENT
--- NOTE | 2019-06-09 20:54 | NUR ---
MEDICATED. PATIENT ABLE TO TOLERATE MEDS, PT HAS NO SIGNS OF SEIZURES.
[2019-06-09] MEDS: traZODone 50 MG TAB PO SCH (20:56)
[2019-06-09] MEDS ORDERED: levETIRAcetam 500 MG TAB PO SCH (21:00)
[2019-06-09] MEDS ORDERED: traZODone 50 MG TAB PO SCH (21:00)
--- NOTE | 2019-06-09 23:29 | NUR ---
CHECKED ON PATIENT, INFORMED HIM THAT WE NEED A SPECIMEN FOR DRUG SCREEN. PT ACKNOWLEDGED.
--- NOTE | 2019-06-10 03:00 | NUR ---
PT INSTRUCTED TO TELL THE NURSE TO GET A URINE SAMPLE FOR DRUG SCREEN. PT ACKNOWLEDGED
[2019-06-10] MEDS: NACL 0.9% 1,000 ML IV SCH (03:01)
--- NOTE | 2019-06-10 03:12 | NUR ---
PATIENT APPEARS SLEEPING COMFORTABLY, NO SIGNS OF DISTRESS NOTED AT THE MOMENT, BED IN LOW POSITION, WILL CONTINUE TO MONITOR.
[2019-06-10 04:00] VITALS: BP 126/74
--- NOTE | 2019-06-10 04:12 | NUR ---
PT SLEEPING AT THSI TIME, NO COMPLAINTS, NO SOB, NO SEIZURES NOTED. STILL WITH SLIGHT TREMORS NOTED
--- NOTE | 2019-06-10 06:30 | NUR ---
PT SLEEPING BUT EASILY AROUSABLE TO VERBAL STIMULI, STILL FOR COLLECTION FOR URINE DRUG SCREEN
[2019-06-10 06:43] LABS: BASOPHILS % (AUTO) 0.4 % (0.0-2.0); EOSINOPHILS # (AUTO) 0.3 K/uL (0-0.4); EOSINOPHILS % (AUTO) 3.6 % (0.0-4.0); HEMATOCRIT 30.9 % (36-52); HEMOGLOBIN 10.5 g/dL (12.0-18.0); LYMPHOCYTES # (AUTO) 3.6 K/uL (2.0-11.5); LYMPHOCYTES % (AUTO) 50.4 % (20.5-51.1); MEAN CORPUSCULAR HEMOGLOBIN 31 pg (27-31); MEAN CORPUSCULAR HGB CONC 34 g/dL (33-37); MEAN CORPUSCULAR VOLUME 91.9 fL (80-94); MONOCYTES # (AUTO) 0.6 K/uL (0.8-1.0); MONOCYTES % (AUTO) 7.8 % (1.7-9.3); NEUTROPHILS # (AUTO) 2.7 K/uL (1.8-7.7); NEUTROPHILS % (AUTO) 37.8 % (42.2-75.2); PLATELET COUNT (AUTO) 144 K/uL (140-450); RED BLOOD CELL COUNT(AUTO) 3.36 MIL/uL (4.20-6.10); RED CELL DISTRIBUTION WIDTH 14.7 % (11.6-13.7); WHITE BLOOD COUNT (AUTO) 7.1 K/uL (4.8-10.8)
--- NOTE | 2019-06-10 07:10 | NUR ---
RECEIVED PT FROM TIRE RECAPPING MACHINE OPERATOR NURSECLARA, PT IS AWAKE AND LYING ON THE BED WITH SIDE RAILS UP AND CALL LIGHT WITHIN REACH, IV LINE IS ON THE LEFT AC G. 20 WITH NS INFUSING AT 75ML/HR, SAFETY AND FALL PRECAUTION ENFORCED, PT DENIES PAIN AND NO SIGN OF DISTRESS NOTED. WILL MONITOR PT.
[2019-06-10 07:59] LABS: MAGNESIUM 1.5 mg/dL (1.8-2.4); PHOSPHORUS 3.6 mg/dL (2.5-4.9)
[2019-06-10 08:03] VITALS: BP 128/76
[2019-06-10 08:11] LABS: POTASSIUM 3.7 mmol/L (3.5-5.1)
[2019-06-10 08:12] LABS: ANION GAP 13.8 (8-16); CARBON DIOXIDE 22.9 mmol/L (21-32); CREATININE 0.9 mg/dL (0.7-1.3)
[2019-06-10] MEDS ORDERED: MAG SULF 2000 MG/WATER PREMIX 50 ML IV ONE (08:40)
[2019-06-10] MEDS: ECOTRIN 81 MG TABEC PO SCH (08:59)
[2019-06-10] MEDS: ATORVASTATIN 80 MG TAB PO SCH (08:59)
[2019-06-10] MEDS: DOCUSATE SODIUM 100 MG GELCAP PO SCH ×2 (08:59→09:00)
[2019-06-10] MEDS: levETIRAcetam 500 MG TAB PO SCH (09:00)
[2019-06-10] MEDS: FAMOTIDINE 20 MG TAB PO SCH (09:00)
[2019-06-10] MEDS: clonazePAM 0.5 MG TAB PO SCH (09:01)
--- NOTE | 2019-06-10 09:03 | NUR ---
PT IS AWAKE AND SEATED ON TH4E BED, PARAMETER CHECKED, ORAL AND IV MEDICATIONS WERE GIVEN, MG IS 1.7, TOLERATED IT. WILL MONITOR PT.
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
[2019-06-10] MEDS: MAGNESIUM SULFATE 1GM in DEXTROSE 5% 100 ML PREMIX IV SCH ×2 (09:06→11:17)
[2019-06-10] MEDS ORDERED: LEVE1000 PO (09:09)
[2019-06-10] MEDS ORDERED: CLON2TAB PO (09:09)
[2019-06-10 09:13] LABS: HEPATITIS A ANTIBODY IGM Negative (Negative); HEPATITIS B CORE AB TOTAL Negative (Negative); HEPATITIS B SURFACE ANTIBODY Non Reactive (.); HEPATITIS B SURFACE ANTIGEN Negative (Negative)
[2019-06-10] MEDS: HYDROcodone/APAP 7.5/325 MG 1 TAB PO PRN (09:23)
--- NOTE | 2019-06-10 09:23 | NUR ---
PT C/O PAIN RATE OF 6/10 ON HIS RIBS, PAIN MEDICATION WAS GIVEN PARAMETER CHECKED. WILL MONITOR PT.
[2019-06-10 09:29] LABS: APPEARANCE,URINE CLEAR (CLEAR); BILIRUBIN,URINE NEGATIVE (NEGATIVE); BLOOD, URINE NEGATIVE (NEGATIVE); COLOR,URINE YELLOW (YELLOW); LEUKOCYTE ESTERASE ,URINE NEGATIVE (NEGATIVE); NITRITE, URINE NEGATIVE (NEGATIVE); PH,URINE 7.5 (5.0-9.0); UGLUCOSE NEGATIVE (NEGATIVE)
[2019-06-10 09:35] LABS: BARBITURATE, URINE NEG. ng/ml (NEG <=200); BENZODIAZEPINE, URINE NEG. ng/mL (NEG <=200); CANNABINOID, URINE NEG. ng/mL (NEG <=50); COCAINE, URINE NEG. ng/mL (NEG <=300); OPIATE, URINE NEG. ng/mL (NEG <=2000); PHENCYCLIDINE SCREEN,URINE NEG. ng/mL (NEG <=25)
--- NOTE | 2019-06-10 10:20 | NUR ---
CONTACTED [facility] [phone] SPOKE WITH BALJIT NOTIFIED HER TO DISREGARD THE CONFIDENTIAL MORBIDITY REPORT FORM FOR SEIZURE WAS FAXED BY [facility], PER BALJIT SHE WILL DISREGARD THE FORM.
--- NOTE | 2019-06-10 11:00 | NUR ---
PT IS AMBULATING IN THE HALLWAY NOW BEING EVALUATED BY PHYSICAL THERAPIST, CAROL,STEADY GAIT, NO SIGN OF DISTRESS NOTED.
--- NOTE | 2019-06-10 11:18 | NUR ---
SECOND BAG OF MAGNESIUM WAS STARTED TO PT NOW.
--- NOTE | 2019-06-10 13:03 | NUR ---
P.T. NOTES D/C FROM P.T. AFTER TX, NURSING TO AMBULATE AD GREGORY. Addendum: 06/10/19 at 1304 by Gwendolyn Arechiga PT Amended: Links added.
--- NOTE | 2019-06-10 13:36 | NUR ---
06/10/19 RD INITIAL ASSESSMENT COMPLETED PLEASE REFER TO NUTRITION ASSESSMENT UNDER CARE ACTIVITY FOR ESTIMATED NUTRITIONAL NEEDS. 1. CONTINUE REGULAR DIET TOLERATED 2. RD TO FOLLOW-UP 5-7 DAYS, LOW RISK JEMMA LARIOS RD
[2019-06-10 16:00] VITALS: BP 118/75
[2019-06-10] MEDS ORDERED: levETIRAcetam 500 MG TAB PO SCH (16:20)
[2019-06-10] MEDS ORDERED: clonazePAM 0.5 MG TAB PO SCH (16:20)
--- NOTE | 2019-06-10 16:25 | NUR ---
DISCHARGED PT TO HOME, TEACHINGS AND INSTRUCTIONS GIVEN TO PT AND VERBALIZED UNDERSTANDING, IV AND ARM BAND REMOVED , DENIES PAIN AND IS STABLE AT THIS TIME.
== END 2019-06-10 16:30 | disposition home or self-care (01) | DRG 48 ==
LOC: MED 08:25 → MTU 15:27
PROVIDERS: ADMIT General Practice; ATTEND General Practice
PROC: 4A10X4Z Monitoring of Central Nervous Electrical Activity, External Approach (ICD-10-PCS; principal; 2019-06-09)
DX: G90.8 Other disorders of autonomic nervous system (principal); R65.10 Systemic inflammatory response syndrome (SIRS) of non-infectious origin without acute organ dysfunction; E83.39 Other disorders of phosphorus metabolism; E83.42 Hypomagnesemia; E83.51 Hypocalcemia; E87.6 Hypokalemia; G40.909 Epilepsy, unspecified, not intractable, without status epilepticus; F17.210 Nicotine dependence, cigarettes, uncomplicated; E78.5 Hyperlipidemia, unspecified; D64.9 Anemia, unspecified; D72.829 Elevated white blood cell count, unspecified; K80.20 Calculus of gallbladder without cholecystitis without obstruction; Z79.82 Long term (current) use of aspirin; Z79.899 Other long term (current) drug therapy; Z86.73 Personal history of transient ischemic attack (TIA), and cerebral infarction without residual deficits; Z59.0 Homelessness; Z91.19 Patient's noncompliance with other medical treatment and regimen; E86.0 Dehydration
CPT/HCPCS: 36415; 70450; 71045; 76705; 80048; 80053; 80173; 80305; 81003; 82140; 82150; 83036; 83690; 83735; 83880; 84100; 84439; 84443; 84484; 85025; 85610; 85730; 86704; 86706; 86708; 86709; 86803; 87081; 87340; 93005; 95816; 96365; 96375; 97110; 97116; 97161-GP; 97530; 99285; G0482; J1953; J2001; J2060; J3480; J7030; Q0092

== ENCOUNTER 2019-06-22 01:24 | Emergency (ER) | payer MEDICAID ==
[~2019-06-22] VITALS: Ht 175.3 cm; Wt 68.0 kg
[~2019-06-22 01:24] MED LIST changes: -CITA40TA13 PO; -CLOP75TA55 PO
[2019-06-22 01:30] VITALS: BP 138/84
[2019-06-22] MEDS ORDERED: MULTIVITAMIN-12 10 ML, THIAMINE 100 MG, MAGNESIUM SULFATE 50% 2,000 MG, FOLIC ACID 1 MG... IV ONE ×5 (01:40)
[2019-06-22 01:55] LABS: BASOPHILS # (AUTO) 0.1 K/uL (0.00-0.22); BASOPHILS % (AUTO) 0.7 % (0.0-2.0); EOSINOPHILS # (AUTO) 0.2 K/uL (0-0.4); HEMATOCRIT 41.6 % (36-52); HEMOGLOBIN 13.7 g/dL (12.0-18.0); LYMPHOCYTES # (AUTO) 4.3 K/uL (2.0-11.5); MEAN CORPUSCULAR HEMOGLOBIN 31 pg (27-31); MEAN CORPUSCULAR HGB CONC 33 g/dL (33-37); MEAN CORPUSCULAR VOLUME 93.6 fL (80-94); MONOCYTES # (AUTO) 0.6 K/uL (0.8-1.0); MONOCYTES % (AUTO) 5.2 % (1.7-9.3); NEUTROPHILS % (AUTO) 57.1 % (42.2-75.2); PLATELET COUNT (AUTO) 359 K/uL (140-450); RED BLOOD CELL COUNT(AUTO) 4.45 MIL/uL (4.20-6.10); RED CELL DISTRIBUTION WIDTH 16.1 % (11.6-13.7); WHITE BLOOD COUNT (AUTO) 12.3 K/uL (4.8-10.8)
[2019-06-22 02:03] LABS: ANION GAP 15.7 (8-16); CARBON DIOXIDE 27.8 mmol/L (21-32); CREATININE 1.5 mg/dL (0.7-1.3); POTASSIUM 3.5 mmol/L (3.5-5.1)
[2019-06-22] MEDS ORDERED: MULTIVITAMIN-12 10 ML VIAL IV ONE ×2 (02:04→02:08)
[2019-06-22] MEDS ORDERED: MAG SULF 2000 MG/WATER PREMIX 50 ML IV ONE (02:06)
[2019-06-22] MEDS ORDERED: THIAMINE 200 MG/2 ML VIAL ONE (02:09)
[2019-06-22 02:10] LABS: ALBUMIN 3.6 g/dL (3.4-5.0); TOTAL BILIRUBIN 0.3 mg/dL (0.0-1.0)
[2019-06-22] MEDS ORDERED: FOLIC ACID 5 MG/ML SYR ONE (02:10)
[2019-06-22] MEDS ORDERED: levETIRAcetam 100 MG/ML VIAL IV ONE (02:43)
[2019-06-22] MEDS ORDERED: levETIRAcetam 500 MG in NACL 0.9% 100 ML IV ONE (03:00)
[2019-06-22 05:24] VITALS: BP 140/49
[2019-06-22] MEDS ORDERED: levETIRAcetam 500 MG in NACL 0.9% 100 ML IV SCH (09:00)
== END 2019-06-22 05:15 | disposition home or self-care (01) ==
LOC: MED 01:24
DX: G40.909 Epilepsy, unspecified, not intractable, without status epilepticus (principal); F10.129 Alcohol abuse with intoxication, unspecified; R51 Headache; M25.552 Pain in left hip; F17.210 Nicotine dependence, cigarettes, uncomplicated; Z86.73 Personal history of transient ischemic attack (TIA), and cerebral infarction without residual deficits; Z98.890 Other specified postprocedural states; Z79.82 Long term (current) use of aspirin; Z79.899 Other long term (current) drug therapy; Z59.0 Homelessness
CPT/HCPCS: 36415; 70450; 80053; 85025; 96365; 96366; 96368; 99284; A9153; G0482; J1953; J3411; J3475; J3490

== ENCOUNTER 2019-06-29 15:15 | Emergency (ER) | payer MEDICAID ==
[~2019-06-29] VITALS: Ht 175.3 cm; Wt 70.3 kg
[2019-06-29 15:35] VITALS: BP 121/69
--- NOTE | 2019-06-29 15:40 | NUR ---
TRIAGE COMPLETE. OKAY TO WAIT IN LOBBY FOR BED IN ED.
--- NOTE | 2019-06-29 17:18 | NUR ---
PT CALLED MULTILE TIMES, NO ANSWER IN ER LOBBY. PATIENT LEFT WITHOUT BEING SEEN BY DR. NEWTON. NO FURTHER CARE PROVIDED FOR PATIENT.
== END 2019-06-29 17:35 | disposition left against medical advice (07) ==
LOC: MED 15:15
DX: M79.671 Pain in right foot (principal); M79.672 Pain in left foot; Z53.21 Procedure and treatment not carried out due to patient leaving prior to being seen by health care provider

== ENCOUNTER 2019-06-29 18:33 | Emergency (ER) | payer MEDICAID ==
[~2019-06-29] VITALS: Ht 172.7 cm; Wt 74.8 kg
--- NOTE | 2019-06-29 19:08 | NUR ---
CALLED PT FROM LOBBY, PT NOT PRESENT
[2019-06-29 19:11] VITALS: BP 108/65
[2019-06-29] MEDS ORDERED: IBUPROFEN 600 MG TAB PO ONE (19:40)
--- NOTE | 2019-06-29 21:00 | NUR ---
PATIENT LEFT WITHOUT BEING SEEN BY DR. TERRY. PT CALLED X3 IN LOBBY AND PARKING LOT. NO FURTHER CARE PROVIDED FOR PATIENT.
== END 2019-06-29 21:00 | disposition left against medical advice (07) ==
LOC: MED 18:33
DX: M25.551 Pain in right hip (principal); M79.671 Pain in right foot; M25.511 Pain in right shoulder; Z53.21 Procedure and treatment not carried out due to patient leaving prior to being seen by health care provider; Y09 Assault by unspecified means; Y93.89 Activity, other specified; Y92.89 Other specified places as the place of occurrence of the external cause; Y99.8 Other external cause status
CPT/HCPCS: 73030; 73502; 73630; 99281

== ENCOUNTER 2019-06-30 07:15 | Emergency (ER) | payer MEDICAID ==
[~2019-06-30] VITALS: Ht 180.3 cm; Wt 81.6 kg
--- NOTE | 2019-06-30 07:24 | NUR ---
Patient ambulated to bed 9. RN evaluating patient at bedside.
[2019-06-30 07:26] VITALS: BP 134/71
--- NOTE | 2019-06-30 07:28 | NUR ---
ER AT BEDSIDE
--- NOTE | 2019-06-30 07:36 | NUR ---
PT BIB SELF C/O RT FOOT, LEG, HIP, AND BUTTOCKS PAIN SINCE YESTERDAY. PT STATES THAT HE THINKS HE FELL, POSSIBLE SIEZURE. BRUISING TO PT RT FOOT, LEG, HIP, AND BUTTOCKS. PT REPORTS SHARP PAIN AT 8/10 THAT INCREASES W/ ADL'S. PT AAOX4, COOPERATIVE, SPEECH CLEAR, FACIAL SYMMETRY INTACT, GAIT STEADY. VSS. ER TO SEE PT. MEDHX:TIA, SEIZURE, ETOH
--- NOTE | 2019-06-30 07:36 | NUR ---
signal maintenance technician at bedside.
--- NOTE | 2019-06-30 07:47 | NUR ---
LAB AT BEDSIDE AT THIS TIME.
[2019-06-30 08:00] LABS: BASOPHILS # (AUTO) 0.1 K/uL (0.00-0.22); EOSINOPHILS # (AUTO) 0.6 K/uL (0-0.4); EOSINOPHILS % (AUTO) 7.9 % (0.0-4.0); HEMATOCRIT 36.8 % (36-52); HEMOGLOBIN 12.1 g/dL (12.0-18.0); LYMPHOCYTES # (AUTO) 2.3 K/uL (2.0-11.5); LYMPHOCYTES % (AUTO) 30.5 % (20.5-51.1); MEAN CORPUSCULAR HEMOGLOBIN 31 pg (27-31); MEAN CORPUSCULAR HGB CONC 33 g/dL (33-37); MEAN CORPUSCULAR VOLUME 94.8 fL (80-94); MONOCYTES # (AUTO) 0.4 K/uL (0.8-1.0); MONOCYTES % (AUTO) 4.9 % (1.7-9.3); NEUTROPHILS # (AUTO) 4.3 K/uL (1.8-7.7); NEUTROPHILS % (AUTO) 55.7 % (42.2-75.2); PLATELET COUNT (AUTO) 147 K/uL (140-450); RED BLOOD CELL COUNT(AUTO) 3.88 MIL/uL (4.20-6.10); RED CELL DISTRIBUTION WIDTH 16.7 % (11.6-13.7); WHITE BLOOD COUNT (AUTO) 7.7 K/uL (4.8-10.8)
[2019-06-30 08:32] LABS: ALBUMIN 3.6 g/dL (3.4-5.0); ANION GAP 12.1 (8-16); CARBON DIOXIDE 28.1 mmol/L (21-32); POTASSIUM 3.2 mmol/L (3.5-5.1)
[2019-06-30 08:40] LABS: PROTHROMBIN TIME 9.9 secs (10.8-13.4)
[2019-06-30] MEDS ORDERED: ACETAMINOPHEN 325 MG TAB PO ONE (08:40)
--- NOTE | 2019-06-30 08:54 | NUR ---
Dr. Anton re-evaluating patient at bedside.
[2019-06-30 09:10] VITALS: BP 126/79
== END 2019-06-30 09:10 | disposition home or self-care (01) ==
LOC: MED 07:15
DX: S80.11XA Contusion of right lower leg, initial encounter (principal); Z86.73 Personal history of transient ischemic attack (TIA), and cerebral infarction without residual deficits; Z79.82 Long term (current) use of aspirin; Z79.899 Other long term (current) drug therapy; X58.XXXA Exposure to other specified factors, initial encounter; Y93.89 Activity, other specified; Y92.89 Other specified places as the place of occurrence of the external cause; Y99.8 Other external cause status
CPT/HCPCS: 36415; 73590; 80053; 85025; 85610; 85730; 99284; Q0092

== ENCOUNTER 2019-07-06 14:19 | Emergency (ER) | payer MEDICAID ==
[~2019-07-06] VITALS: Ht 175.3 cm; Wt 65.4 kg
[2019-07-06 14:43] VITALS: BP 110/70
--- NOTE | 2019-07-06 15:08 | NUR ---
PT AMBULATED TO BED 02.
--- NOTE | 2019-07-06 15:20 | NUR ---
BIB SELF W/ C/O GENERAL WEAKNESS, N/V/D, DIZZINESS, DIFFICULTY TALKING X 5 DAYS. PER PT HE IS ON THE STREET X 4 WKS. HX: CVA, SEIZURE MEDS: KEPPRA, CLONAZEPAM, ASA, LIPITOR . SKIN IS PINK/WARM/DRY; AAOX4. LUNGS CLEAR BL; HR EVEN AND REGULAR; PT DENIES ANY FEVER, CP, SOB, OR COUGH AT THIS TIME; PATIENT STATES PAIN OF 0/10 AT THIS TIME; VSS; PATIENT POSITIONED FOR COMFORT; HOB ELEVATED; BEDRAILS UP X2; BED DOWN. ER MD MADE AWARE OF PT STATUS.
[2019-07-06 15:51] LABS: BASOPHILS # (AUTO) 0.1 K/uL (0.00-0.22); BASOPHILS % (AUTO) 1.3 % (0.0-2.0); EOSINOPHILS # (AUTO) 0.4 K/uL (0-0.4); EOSINOPHILS % (AUTO) 5.5 % (0.0-4.0); HEMATOCRIT 40.1 % (36-52); HEMOGLOBIN 13.1 g/dL (12.0-18.0); LYMPHOCYTES # (AUTO) 2.4 K/uL (2.0-11.5); LYMPHOCYTES % (AUTO) 34.2 % (20.5-51.1); MEAN CORPUSCULAR HEMOGLOBIN 32 pg (27-31); MEAN CORPUSCULAR HGB CONC 33 g/dL (33-37); MEAN CORPUSCULAR VOLUME 96.9 fL (80-94); MONOCYTES # (AUTO) 0.3 K/uL (0.8-1.0); MONOCYTES % (AUTO) 4.9 % (1.7-9.3); NEUTROPHILS # (AUTO) 3.8 K/uL (1.8-7.7); NEUTROPHILS % (AUTO) 54.1 % (42.2-75.2); PLATELET COUNT (AUTO) 170 K/uL (140-450); RED BLOOD CELL COUNT(AUTO) 4.13 MIL/uL (4.20-6.10); RED CELL DISTRIBUTION WIDTH 18.7 % (11.6-13.7)
[2019-07-06 15:58] LABS: ANION GAP 12.4 (8-16); CREATININE 0.9 mg/dL (0.7-1.3); POTASSIUM 3.4 mmol/L (3.5-5.1)
[2019-07-06 16:03] LABS: ALBUMIN 3.8 g/dL (3.4-5.0); TOTAL BILIRUBIN 0.9 mg/dL (0.0-1.0)
--- NOTE | 2019-07-06 18:00 | NUR ---
spoke to [facility]NAG[facility] RHEA REGARDING PT'S VITALS, AND LAB REPORT. RHEA ASKED ME FOR X-RAY REPORT. NO REPORT YET. WILL CALL BACK ONCE GOT REPORT.
--- NOTE | 2019-07-06 18:29 | NUR ---
TALKED TO FABIO UREÑA REGARDING PHONE CALL. NIRANJAN PRINTED OUT REPORT. CALLED [facility] [phone]. RHEA IS OFF WORK. THEY SAID WILL ASK SEX CRIMES DETECTIVE TO CALL ME BACK.
[2019-07-06 19:03] LABS: APPEARANCE,URINE CLEAR (CLEAR); BILIRUBIN,URINE NEGATIVE (NEGATIVE); BLOOD, URINE TRACE-L (NEGATIVE); COLOR,URINE YELLOW (YELLOW); LEUKOCYTE ESTERASE ,URINE NEGATIVE (NEGATIVE); NITRITE, URINE NEGATIVE (NEGATIVE); PH,URINE 6.5 (5.0-9.0); UGLUCOSE NEGATIVE (NEGATIVE)
[2019-07-06 19:09] LABS: BARBITURATE, URINE NEG. ng/ml (NEG <=200); BENZODIAZEPINE, URINE NEG. ng/mL (NEG <=200); CANNABINOID, URINE NEG. ng/mL (NEG <=50); COCAINE, URINE NEG. ng/mL (NEG <=300); OPIATE, URINE NEG. ng/mL (NEG <=2000); PHENCYCLIDINE SCREEN,URINE NEG. ng/mL (NEG <=25)
[2019-07-06 19:40] VITALS: BP 118/68
--- NOTE | 2019-07-06 19:40 | NUR ---
Patient discharged with v/s stable. Written and verbal after care instructions given and explained. Patient alert, oriented and verbalized understanding of instructions. Ambulatory with steady gait. All questions addressed prior to discharge. ID band removed. Patient advised to follow up with PMD. Rx of AUGMENTIN AND AZITHROMYCIN WAS given. Patient educated on indication of medication including possible reaction and side effects. Opportunity to ask questions provided and answered.
== END 2019-07-06 19:40 | disposition home or self-care (01) ==
LOC: MED 14:19 → UNDOADMIN 18:03 → MMU 18:03 → MED 19:40
DX: J18.9 Pneumonia, unspecified organism (principal); Z86.73 Personal history of transient ischemic attack (TIA), and cerebral infarction without residual deficits; Z86.69 Personal history of other diseases of the nervous system and sense organs; Z79.899 Other long term (current) drug therapy; Z79.1 Long term (current) use of non-steroidal anti-inflammatories (NSAID)
CPT/HCPCS: 36415; 71045; 80053; 80305; 81003; 83605; 83880; 84484; 85025; 87040; 87086; 93005; 99284; Q0092

== ENCOUNTER 2019-07-12 15:20 | Emergency (ER) | payer MEDICAID ==
[~2019-07-12] VITALS: Ht 175.3 cm; Wt 70.3 kg
[2019-07-12 15:31] VITALS: BP 110/85
[2019-07-12 16:50] VITALS: BP 110/85
== END 2019-07-12 16:50 | disposition home or self-care (01) ==
LOC: MED 15:20
DX: R42 Dizziness and giddiness (principal); H61.23 Impacted cerumen, bilateral; F32.9 Major depressive disorder, single episode, unspecified; Z76.0 Encounter for issue of repeat prescription; Z86.73 Personal history of transient ischemic attack (TIA), and cerebral infarction without residual deficits; Z79.899 Other long term (current) drug therapy; Z79.82 Long term (current) use of aspirin
CPT/HCPCS: 99283

== ENCOUNTER 2019-07-14 04:30 | Emergency (ER) | payer MEDICAID ==
[~2019-07-14] VITALS: Ht 175.3 cm; Wt 70.3 kg
[2019-07-14 04:44] VITALS: BP 138/92
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
--- NOTE | 2019-07-14 05:58 | NUR ---
DR. BETTS BEDSIDE EVALUATING PT
[2019-07-14] MEDS ORDERED: NACL 0.9% 1,000 ML IV ONE (06:05)
[2019-07-14 06:31] LABS: BASOPHILS # (AUTO) 0.1 K/uL (0.00-0.22); BASOPHILS % (AUTO) 1.4 % (0.0-2.0); EOSINOPHILS # (AUTO) 0.4 K/uL (0-0.4); EOSINOPHILS % (AUTO) 5.5 % (0.0-4.0); HEMATOCRIT 38.5 % (36-52); HEMOGLOBIN 12.8 g/dL (12.0-18.0); LYMPHOCYTES % (AUTO) 45.6 % (20.5-51.1); MEAN CORPUSCULAR HEMOGLOBIN 32 pg (27-31); MEAN CORPUSCULAR HGB CONC 33 g/dL (33-37); MEAN CORPUSCULAR VOLUME 97.2 fL (80-94); MONOCYTES # (AUTO) 0.4 K/uL (0.8-1.0); NEUTROPHILS # (AUTO) 2.7 K/uL (1.8-7.7); NEUTROPHILS % (AUTO) 41.5 % (42.2-75.2); PLATELET COUNT (AUTO) 123 K/uL (140-450); RED BLOOD CELL COUNT(AUTO) 3.96 MIL/uL (4.20-6.10); RED CELL DISTRIBUTION WIDTH 18.9 % (11.6-13.7); WHITE BLOOD COUNT (AUTO) 6.6 K/uL (4.8-10.8)
[2019-07-14 06:45] LABS: BARBITURATE, URINE NEG. ng/ml (NEG <=200); BENZODIAZEPINE, URINE POS. ng/mL (NEG <=200); CANNABINOID, URINE NEG. ng/mL (NEG <=50); COCAINE, URINE NEG. ng/mL (NEG <=300); OPIATE, URINE NEG. ng/mL (NEG <=2000); PHENCYCLIDINE SCREEN,URINE POS. ng/mL (NEG <=25)
[2019-07-14 06:47] LABS: ANION GAP 12.9 (8-16); CARBON DIOXIDE 28.2 mmol/L (21-32); CREATININE 1.1 mg/dL (0.7-1.3); POTASSIUM 3.1 mmol/L (3.5-5.1)
[2019-07-14 06:51] LABS: ALBUMIN 3.5 g/dL (3.4-5.0); TOTAL BILIRUBIN 1.2 mg/dL (0.0-1.0)
--- NOTE | 2019-07-14 07:10 | NUR ---
PT REMOVED IV FROM ARM. PER PT "I WAS TRYING TO GO TO THE RESTROOM."
--- NOTE | 2019-07-14 07:12 | NUR ---
NOTIFIED DR. BETTS REGARDING PT REMOVED IV. PER DR. BETTS, DO NOT REINSERT IV, PT HAS BEEN DISCHARGED.
[2019-07-14 07:25] VITALS: BP 134/87
--- NOTE | 2019-07-14 07:26 | NUR ---
Patient discharged with v/s stable. Written and verbal after care instructions given and explained. Patient verbalized understanding. Ambulatory with steady gait. All questions addressed prior to discharge. Advised to follow up with PMD.
[2019-07-14 10:55] LABS: CREATINE KINASE MB 6.5 ng/mL (0-3.6)
== END 2019-07-14 07:26 | disposition home or self-care (01) ==
LOC: MED 04:30
DX: F16.10 Hallucinogen abuse, uncomplicated (principal); F10.129 Alcohol abuse with intoxication, unspecified; R42 Dizziness and giddiness; F17.210 Nicotine dependence, cigarettes, uncomplicated; Z86.73 Personal history of transient ischemic attack (TIA), and cerebral infarction without residual deficits; Z98.890 Other specified postprocedural states; Z79.82 Long term (current) use of aspirin; Z79.899 Other long term (current) drug therapy
CPT/HCPCS: 36415; 71045; 80053; 80305; 82550; 82553; 83690; 84484; 85025; 93005; 96360; 99284; G0482; J7030; Q0092

== ENCOUNTER 2019-07-15 14:05 | Emergency (ER) | payer MEDICAID ==
[~2019-07-15] VITALS: Ht 175.3 cm; Wt 70.3 kg
[2019-07-15 14:16] VITALS: BP 116/77
--- NOTE | 2019-07-15 14:34 | NUR ---
48 Y/O MALE C/O DIZZINESS AND SHAKINESS X 1 DAY. PER PATIENT, HE HASN'T TAKEN HIS SEIZURE MEDICATIONS SINCE 9AM YESTERDAY 07/14/19. A/OX3 FOLLOWS COMMANDS; PERRLA +3. HAND FIBRE CEMENT MOULDER STRONG; DENIES N/V/D. PAIN FROM HIP AND NECK NOTED; 04/01 ACUTE PAIN. ERMD MADE AWARE OF STATUS. SIDE RAILSX1. PLACED ON MONITOR; PLACED ON SEIZURE PRECAUTIONS. WILL CONTINUE TO MONITOR. PMH:SEIZURES RX:KEPPRA; CLONAZEPAM; CITALOPRAM
--- NOTE | 2019-07-15 14:36 | NUR ---
PATIENT AMBULATED TO RESTROOM.
[2019-07-15 15:24] VITALS: BP 130/73
--- NOTE | 2019-07-15 15:25 | NUR ---
PT IS HOMELESS, PT PROVIDED WITH MEAL ZIPLOCK, BUS PASS, AND PAPER SCRUBS. PT WITH CLOTHING APPROPRIATE FOR WEATHER. HOMELESS RESOURCE PACKET PROVIDED, HOMELESS WAIVER SIGNED.
--- NOTE | 2019-07-15 15:26 | NUR ---
Patient discharged with v/s stable. Written and verbal after care instructions given and explained. Patient alert, oriented and verbalized understanding of instructions. Ambulatory with steady gait. All questions addressed prior to discharge. ID band removed. Patient advised to follow up with PMD. Rx of KEPPRA, CLONAZEPAM, CITALOPRAM given. Patient educated on indication of medication including possible reaction and side effects. Opportunity to ask questions provided and answered.
== END 2019-07-15 15:26 | disposition home or self-care (01) ==
LOC: MED 14:05
DX: R42 Dizziness and giddiness (principal); R53.1 Weakness; R05 Cough; F17.210 Nicotine dependence, cigarettes, uncomplicated; Z76.0 Encounter for issue of repeat prescription; Z86.73 Personal history of transient ischemic attack (TIA), and cerebral infarction without residual deficits; Z86.69 Personal history of other diseases of the nervous system and sense organs; Z79.82 Long term (current) use of aspirin; Z79.899 Other long term (current) drug therapy
CPT/HCPCS: 81002; 99283

== ENCOUNTER 2019-08-02 12:20 | Emergency (ER) | payer MEDICAID ==
--- NOTE | 2019-08-02 13:38 | NUR ---
CALLED PT, BUT PT IS NOT IN THE LOBBY OR OUTSIDE OF ER.
--- NOTE | 2019-08-02 13:48 | NUR ---
CALLED FOR PT INSIDE AND OUTSIDE ER LOBBY, NO ANSWER. PT LWBS
--- NOTE | 2019-08-02 13:58 | NUR ---
CALLED FOR PT INSIDE AND OUTSIDE ER LOBBY, NO ANSWER. PT LWBS
== END 2019-08-02 13:38 | disposition left against medical advice (07) ==
LOC: MED 12:20
DX: Z53.21 Procedure and treatment not carried out due to patient leaving prior to being seen by health care provider (principal)

== ENCOUNTER 2019-08-02 15:38 | Emergency (ER) | payer MEDICAID ==
[~2019-08-02] VITALS: Ht 175.3 cm; Wt 65.8 kg
[2019-08-02 15:44] VITALS: BP 138/77
--- NOTE | 2019-08-02 15:48 | NUR ---
PT ARRIVED TO ED C/O WEAKNESS,DIZZINESS, UNSTEADY GAIT X 1 DAY. 2MM PERRLA. PT STATE HES BEEN VOMITTING AND SAID HE FELL AND HIT HIS HEAD YESTERADY. NO OBVIOUS DEFORMITY OR HEMATOMA NOTED. VSS. A & O X4. NO SLURRED SPEECH. PROCESS OF THINKING SEEMS DISORGANIZED. NO DISTRESS NOTED. PT SMELLS LIKE ETOH. PMH:ALVARO JASMINE.
--- NOTE | 2019-08-02 16:05 | NUR ---
PTS RIGHT EYE IS SENSITVE TO LIGHT.
[2019-08-02] MEDS ORDERED: ONDANSETRON 4 MG/2 ML VIAL IVP ONE (16:15)
[2019-08-02] MEDS ORDERED: MULTIVITAMIN-12 10 ML, THIAMINE 100 MG, FOLIC ACID 1 MG, MAGNESIUM SULFATE 50% 2,000 MG... IV SCH ×5 (16:15)
--- NOTE | 2019-08-02 16:24 | NUR ---
PT TRANSFER TO CT VIA WHEELCHAIR.
--- NOTE | 2019-08-02 16:45 | NUR ---
PT RETURNED FROM CT VIA WHEELCHAIR.
--- NOTE | 2019-08-02 16:51 | NUR ---
LAB AT BEDSIDE.
[2019-08-02] MEDS ORDERED: levETIRAcetam 1,000 MG in NACL 0.9% 100 ML IV ONE (17:00)
[2019-08-02 17:08] LABS: HEMATOCRIT 43.2 % (36-52); HEMOGLOBIN 14.2 g/dL (12.0-18.0); MEAN CORPUSCULAR HEMOGLOBIN 33 pg (27-31); MEAN CORPUSCULAR HGB CONC 33 g/dL (33-37); MEAN CORPUSCULAR VOLUME 100.3 fL (80-94); NEUTROPHILS % (AUTO) 45.1 % (42.2-75.2); PLATELET COUNT (AUTO) 239 K/uL (140-450); RED BLOOD CELL COUNT(AUTO) 4.31 MIL/uL (4.20-6.10); RED CELL DISTRIBUTION WIDTH 17.2 % (11.6-13.7); WHITE BLOOD COUNT (AUTO) 7.6 K/uL (4.8-10.8)
[2019-08-02 17:09] LABS: BASOPHILS # (AUTO) 0.2 K/uL (0.00-0.22); EOSINOPHILS # (AUTO) 0.6 K/uL (0-0.4); LYMPHOCYTES % (AUTO) 39.2 % (20.5-51.1); MONOCYTES # (AUTO) 0.4 K/uL (0.8-1.0); MONOCYTES % (AUTO) 4.7 % (1.7-9.3); NEUTROPHILS # (AUTO) 3.4 K/uL (1.8-7.7)
[2019-08-02] MEDS ORDERED: levETIRAcetam 100 MG/ML VIAL IV ONE (17:10)
[2019-08-02 17:13] LABS: ALBUMIN 3.4 g/dL (3.4-5.0); ANION GAP 14.7 (8-16); CARBON DIOXIDE 28.1 mmol/L (21-32); CREATININE 0.9 mg/dL (0.7-1.3); POTASSIUM 3.8 mmol/L (3.5-5.1); TOTAL BILIRUBIN 0.3 mg/dL (0.0-1.0)
[2019-08-02 18:06] VITALS: BP 138/77
== END 2019-08-02 18:07 | disposition home or self-care (01) ==
LOC: MED 15:38
DX: R53.1 Weakness (principal); R42 Dizziness and giddiness; R19.7 Diarrhea, unspecified; H53.149 Visual discomfort, unspecified; F17.210 Nicotine dependence, cigarettes, uncomplicated; Z86.73 Personal history of transient ischemic attack (TIA), and cerebral infarction without residual deficits; Z79.82 Long term (current) use of aspirin; Z79.899 Other long term (current) drug therapy; W19.XXXA Unspecified fall, initial encounter; Y93.89 Activity, other specified; Y92.480 Sidewalk as the place of occurrence of the external cause; Y99.8 Other external cause status
CPT/HCPCS: 36415; 70450; 80053; 85025; 96365; 96368; 96375; 99284; A9153; J1953; J2405; J3411; J3475; J3490; 96367

== ENCOUNTER 2019-08-16 16:58 | Emergency (ER) | payer MEDICAID ==
[~2019-08-16] VITALS: Ht 170.2 cm; Wt 64.4 kg
--- NOTE | 2019-08-16 17:05 | NUR ---
PT TAKEN TO BED 4.
[2019-08-16 17:10] VITALS: BP 127/69
--- NOTE | 2019-08-16 17:11 | NUR ---
Dr. Pena is evaluating the patient at bedside.
[2019-08-16] MEDS ORDERED: levETIRAcetam 500 MG TAB PO ONE (17:15)
[2019-08-16] MEDS ORDERED: NACL 0.9% 1,000 ML IV ONE (17:15)
--- NOTE | 2019-08-16 17:15 | NUR ---
48 Y/O MALE C/O DIZZINESS AND PAIN 5/10 ON THE BACK OF HIS HEAD AND LEFT SIDE OF THE FACE AFTER A FALL THIS MORNING. PATIENT STATES HE HAS NAUSEA AND VOMITS DAILY. THE PATIENT HAS SCABS ON HIS RIGHT FOREARM AND LEFT SIDE OF HIS FACE. HX: EVERETT JASMINEZURANJAN Addendum: 08/16/19 at 1752 by [facility] PATIENT STATES HE DRANK 2 24OZ BEERS TODAY. PATIENT STATES THAT HIS SEIZURE MEDICATION AND WALLET WERE STOLLEN A MONTH AGO, HE HAS NOT BEEN TAKING HIS MEDICATION.
[2019-08-16 17:41] LABS: BASOPHILS # (AUTO) 0.1 K/uL (0.00-0.22); BASOPHILS % (AUTO) 1.5 % (0.0-2.0); EOSINOPHILS # (AUTO) 0.4 K/uL (0-0.4); EOSINOPHILS % (AUTO) 5.2 % (0.0-4.0); HEMATOCRIT 43.1 % (36-52); HEMOGLOBIN 14.3 g/dL (12.0-18.0); LYMPHOCYTES # (AUTO) 2.6 K/uL (2.0-11.5); MEAN CORPUSCULAR HEMOGLOBIN 33 pg (27-31); MEAN CORPUSCULAR HGB CONC 33 g/dL (33-37); MEAN CORPUSCULAR VOLUME 99.1 fL (80-94); MONOCYTES # (AUTO) 0.8 K/uL (0.8-1.0); MONOCYTES % (AUTO) 10.2 % (1.7-9.3); NEUTROPHILS # (AUTO) 3.7 K/uL (1.8-7.7); NEUTROPHILS % (AUTO) 49.1 % (42.2-75.2); PLATELET COUNT (AUTO) 235 K/uL (140-450); RED BLOOD CELL COUNT(AUTO) 4.35 MIL/uL (4.20-6.10); RED CELL DISTRIBUTION WIDTH 15.8 % (11.6-13.7); WHITE BLOOD COUNT (AUTO) 7.5 K/uL (4.8-10.8)
[2019-08-16 17:55] LABS: ANION GAP 17.3 (8-16); CARBON DIOXIDE 27.7 mmol/L (21-32); CREATININE 1.3 mg/dL (0.7-1.3)
[2019-08-16 18:01] LABS: ALBUMIN 3.8 g/dL (3.4-5.0); TOTAL BILIRUBIN 0.4 mg/dL (0.0-1.0)
--- NOTE | 2019-08-16 18:30 | NUR ---
Patient cleared for discharge by MD, 200 of the 1000 ml of nacl administered.
[2019-08-16 18:38] VITALS: BP 124/60
--- NOTE | 2019-08-16 18:38 | NUR ---
Patient discharged with v/s stable. Written and verbal after care instructions given and explained. Patient verbalized understanding. Ambulatory with steady gait. All questions addressed prior to discharge. Advised to follow up with PMD. Patient given bus pass and food, has weather appropriate clothing on. Patient given a list of shelters in the area.
== END 2019-08-16 18:38 | disposition home or self-care (01) ==
LOC: MED 16:58
DX: R53.1 Weakness (principal); R42 Dizziness and giddiness; F17.210 Nicotine dependence, cigarettes, uncomplicated; Z79.899 Other long term (current) drug therapy; Z79.82 Long term (current) use of aspirin
CPT/HCPCS: 36415; 80053; 82948; 85025; 96361; 99283; J7030; 96360

== ENCOUNTER 2019-08-23 07:18 | Emergency (ER) | payer MEDICAID ==
[~2019-08-23] VITALS: Ht 175.3 cm; Wt 70.3 kg
--- NOTE | 2019-08-23 07:21 | NUR ---
PT AMBULATED TO ER BED 04
[2019-08-23 07:25] VITALS: BP 120/80
--- NOTE | 2019-08-23 07:26 | NUR ---
48 Y/O MALE PRESENTING WITH C/C OF WEAKENSS AND HAVE NOT BEEN TAKING MEDICATIONS FOR THE PAST 4 DAYS DUE TO THE PHARMACY BEEN CLOSED. PT PRESENTS SHAKY, DENIES DRINKING ALCOHOL, LAST ALCOHOL INTAKE PER PT ONE WEEK AGO. PT NKA. MEDICAL HX OF SZ / TIA, MEDICATIONS KEPPRA/CLONOPIN. LAST ORAL INTAKE YESTERDAY TOLERATED WELL, NO N/V/D. SIDE RAILS WITH SZ PAD PROTECTION, SZ EQUIPMENT AT BEDSIDE.
[2019-08-23] MEDS ORDERED: LORazepam 2 MG/ML VIAL IVP ONE (07:45)
[2019-08-23] MEDS ORDERED: levETIRAcetam 500 MG TAB PO ONE (07:45)
[2019-08-23] MEDS ORDERED: NACL 0.9% 1,000 ML IV ONE (07:45)
[2019-08-23 07:58] LABS: BASOPHILS % (AUTO) 0.6 % (0.0-2.0); EOSINOPHILS # (AUTO) 0.1 K/uL (0-0.4); EOSINOPHILS % (AUTO) 0.9 % (0.0-4.0); HEMATOCRIT 40.5 % (36-52); HEMOGLOBIN 13.6 g/dL (12.0-18.0); LYMPHOCYTES # (AUTO) 1.3 K/uL (2.0-11.5); LYMPHOCYTES % (AUTO) 16.9 % (20.5-51.1); MEAN CORPUSCULAR HEMOGLOBIN 33 pg (27-31); MEAN CORPUSCULAR HGB CONC 34 g/dL (33-37); MEAN CORPUSCULAR VOLUME 98.7 fL (80-94); MONOCYTES # (AUTO) 0.6 K/uL (0.8-1.0); MONOCYTES % (AUTO) 7.2 % (1.7-9.3); NEUTROPHILS % (AUTO) 74.4 % (42.2-75.2); PLATELET COUNT (AUTO) 167 K/uL (140-450); RED CELL DISTRIBUTION WIDTH 14.9 % (11.6-13.7)
[2019-08-23 08:29] LABS: ANION GAP 19.3 (8-16); CARBON DIOXIDE 23.6 mmol/L (21-32); CHLORIDE 98 mmol/L (98-107); CREATININE 1.1 mg/dL (0.7-1.3); GFR ARICAN-AMERICAN 91 mL/min (>90); GLUCOSE 101 mg/dL (74-106); POTASSIUM 3.9 mmol/L (3.5-5.1); SODIUM SERUM 137 mmol/L (136-145); UREA NITROGEN, BLOOD 15 mg/dL (7-18)
[2019-08-23 08:37] LABS: ALBUMIN 3.8 g/dL (3.4-5.0); ASPARTATE AMINOTRANSFERASE 203 U/L (15-37)
[2019-08-23 09:56] VITALS: BP 133/84
--- NOTE | 2019-08-23 09:56 | NUR ---
Note madelyndasia in EDM - 08/23/19 at 1009 by MEDOF Patient discharged with v/s stable. Written and verbal after care instructions given and explained. Patient alert, oriented and verbalized understanding of instructions. Ambulatory with steady gait. All questions addressed prior to discharge. ID band removed. Patient advised to follow up with PMD. Rx of KEPRRA given. Patient educated on indication of medication including possible reaction and side effects. Opportunity to ask questions provided and answered. MEAL, TRANSPORT TICKET, AND HOMELESS RESOURCES PAPER PROVIDED.
--- NOTE | 2019-08-23 09:56 | NUR ---
Patient discharged with v/s stable. Written and verbal after care instructions given and explained. Patient alert, oriented and verbalized understanding of instructions. Ambulatory with steady gait. All questions addressed prior to discharge. ID band removed. Patient advised to follow up with PMD. Rx of KEPRRA AND IMODIUM given. Patient educated on indication of medication including possible reaction and side effects. Opportunity to ask questions provided and answered. MEAL, TRANSPORT TICKET, AND HOMELESS RESOURCES PAPER PROVIDED.
== END 2019-08-23 09:56 | disposition home or self-care (01) ==
LOC: MED 07:18
DX: R56.9 Unspecified convulsions (principal); Z91.14 Patient's other noncompliance with medication regimen; Z86.73 Personal history of transient ischemic attack (TIA), and cerebral infarction without residual deficits; Z79.899 Other long term (current) drug therapy; Z79.82 Long term (current) use of aspirin
CPT/HCPCS: 36415; 80053; 85025; 96374; 99283; G0482; J2060; J7030

== ENCOUNTER 2019-09-16 16:49 | Emergency (ER) | payer MEDICAID ==
[~2019-09-16] VITALS: Ht 172.7 cm; Wt 63.5 kg
[2019-09-16 16:59] VITALS: BP 150/100
--- NOTE | 2019-09-16 17:06 | NUR ---
PT IS ALERT AMBULATORY WITH STEADY GAIT--ASKED TO WAIT IN LOBBY IN WHEELCHAIR FOR AVAILABLE ROOM FOR MD DAWSON
--- NOTE | 2019-09-16 17:30 | NUR ---
PT CALLED FOR BED NO ANSWER, WILL ATTEMPT AGAIN LATER.
--- NOTE | 2019-09-16 17:45 | NUR ---
PT CALLED FOR BED NO ANSWER, WILL ATTEMPT AGAIN LATER.
--- NOTE | 2019-09-16 18:00 | NUR ---
PT CALLED FOR BED NO ANSWER, WILL ATTEMPT AGAIN LATER.
== END 2019-09-16 17:30 | disposition left against medical advice (07) ==
LOC: MED 16:49
DX: F10.10 Alcohol abuse, uncomplicated (principal); Z53.21 Procedure and treatment not carried out due to patient leaving prior to being seen by health care provider

== ENCOUNTER 2019-09-26 13:24 | Emergency (ER) | payer MEDICAID ==
[~2019-09-26] VITALS: Ht 177.8 cm; Wt 70.3 kg
[2019-09-26 13:24] VITALS: BP 120/78
--- NOTE | 2019-09-26 13:34 | NUR ---
PT TRIAGED, SENT BACK TO LOBBY AWAITING FOR BED
--- NOTE | 2019-09-26 13:41 | NUR ---
Patient ambulated to bed 6. RN evaluating patient at bedside.
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
[2019-09-26] MEDS ORDERED: levETIRAcetam 500 MG TAB PO ONE (14:30)
--- NOTE | 2019-09-26 15:00 | NUR ---
Patient taken to CT scan via gurney by RN evaluating patient at bedside.
--- NOTE | 2019-09-26 15:15 | NUR ---
PT BACK FROM CT.
--- NOTE | 2019-09-26 15:40 | NUR ---
PT RESTING IN BED. ALL NEEDS MET AT THIS TIME.
[2019-09-26 17:12] VITALS: BP 126/55
--- NOTE | 2019-09-26 17:13 | NUR ---
Patient discharged with v/s stable. Written and verbal after care instructions given and explained. Patient alert, oriented and verbalized understanding of instructions. Ambulatory with steady gait. All questions addressed prior to discharge. ID band removed. Patient advised to follow up with PMD. Rx of KEYUE given. Patient educated on indication of medication including possible reaction and side effects. Opportunity to ask questions provided and answered.
== END 2019-09-26 17:13 | disposition home or self-care (01) ==
LOC: MED 13:24
DX: S06.9X9A Unspecified intracranial injury with loss of consciousness of unspecified duration, initial encounter (principal); F10.129 Alcohol abuse with intoxication, unspecified; M25.511 Pain in right shoulder; M25.512 Pain in left shoulder; G40.909 Epilepsy, unspecified, not intractable, without status epilepticus; Z51.81 Encounter for therapeutic drug level monitoring; Z86.73 Personal history of transient ischemic attack (TIA), and cerebral infarction without residual deficits; Z79.82 Long term (current) use of aspirin; Z79.899 Other long term (current) drug therapy; Z59.0 Homelessness; Y09 Assault by unspecified means; Y93.89 Activity, other specified; Y92.89 Other specified places as the place of occurrence of the external cause; Y99.8 Other external cause status
CPT/HCPCS: 70450; 70486; 99284

== ENCOUNTER 2019-10-17 19:19 | Emergency (ER) | payer MEDICAID ==
[~2019-10-17] VITALS: Ht 177.8 cm; Wt 68.0 kg
[2019-10-17 19:40] VITALS: BP 124/79
--- NOTE | 2019-10-17 21:35 | NUR ---
PATIENT LEFT WITHOUT BEING SEEN BY DR. Dumont. NO FURTHER CARE PROVIDED FOR PATIENT. Addendum: 10/17/19 at 2205 by [facility] PATIENT ELOPED FROM FACILITY. DISCHARGE INSTRUCTIONS NOT GIVEN TO PATIENT. DR. DUMONT NOTIFIED.
--- NOTE | 2019-10-17 21:35 | NUR ---
first call, no response.
== END 2019-10-17 22:05 | disposition left against medical advice (07) ==
LOC: MED 19:19
DX: R05 Cough (principal)
CPT/HCPCS: 71045; 99281; Q0092

== ENCOUNTER 2023-07-30 14:03 | Emergency (ER) | payer MEDICAID ==
[~2023-07-30 14:03] MED LIST changes: +CLON-929 PO; -CLON2TAB PO
== END 2023-07-30 14:18 | disposition left against medical advice (07) ==
LOC: MED 14:03
DX: R05.9 Cough, unspecified (principal); Z53.21 Procedure and treatment not carried out due to patient leaving prior to being seen by health care provider

== ENCOUNTER 2023-10-16 13:02 | Inpatient (IN) | payer MEDICAID ==
[~2023-10-16] VITALS: Ht 172.7 cm; Wt 84.4 kg
[~2023-10-16 13:02] MED LIST changes: +CLON-575 PO; -CLON-929 PO
[2023-10-16 13:04] VITALS: BP 153/91; PULSE 110; RESP 17; TEMP 97.6; O2SAT 95
[2023-10-16] MEDS ORDERED: LORazepam 2 MG/ML VIAL ONE ×2 (13:08→13:09)
[2023-10-16] MEDS: NACL 0.9% 1,000 ML IV ONE ×3 (13:24→17:00)
[2023-10-16] MEDS ORDERED: levETIRAcetam 100 MG/ML VIAL IV ONE (13:28)
[2023-10-16] MEDS: levETIRAcetam 1,000 MG in NACL 0.9% 100 ML IV ONE (13:33)
[2023-10-16] MEDS: LORazepam 2 MG/ML VIAL IVP ONE (13:34)
[2023-10-16 13:53] LABS: BASOPHILS # (AUTO) 0.2 K/uL (0.00-0.22); BASOPHILS % (AUTO) 0.9 % (0.0-2.0); EOSINOPHILS % (AUTO) 0.1 % (0.0-4.0); HEMATOCRIT 46.3 % (36-52); HEMOGLOBIN 15.3 g/dL (12.0-18.0); LYMPHOCYTES # (AUTO) 2.6 K/uL (2.0-11.5); LYMPHOCYTES % (AUTO) 13.5 % (20.5-51.1); MEAN CORPUSCULAR HEMOGLOBIN 33 pg (27-31); MEAN CORPUSCULAR HGB CONC 33 g/dL (33-37); MONOCYTES # (AUTO) 1.3 K/uL (0.8-1.0); MONOCYTES % (AUTO) 6.8 % (1.7-9.3); NEUTROPHILS # (AUTO) 15.1 K/uL (1.8-7.7); NEUTROPHILS % (AUTO) 78.7 % (42.2-75.2); PLATELET COUNT (AUTO) 136 K/uL (140-450); RED BLOOD CELL COUNT(AUTO) 4.63 MIL/uL (4.20-6.10); WHITE BLOOD COUNT (AUTO) 19.1 K/uL (4.8-10.8)
[2023-10-16 14:11] LABS: ACETONE, SERUM Small (NEGATIVE)
[2023-10-16 14:23] VITALS: O2SAT 95
[2023-10-16 14:24] LABS: ANION GAP 20.4 (8-16); CALCIUM 9.1 mg/dL (8.5-10.1); CARBON DIOXIDE 20.4 mmol/L (21-32); CREATININE 1.1 mg/dL (0.6-1.3); POTASSIUM 3.8 mmol/L (3.5-5.1)
[2023-10-16] MEDS ORDERED: ALBU10.7 (14:28)
[2023-10-16] MEDS ORDERED: CITA-73 PO (14:28)
[2023-10-16] MEDS ORDERED: NICO-532 TP (14:28)
[2023-10-16 14:39] LABS: INR 0.99 (0.8-1.2); PARTIAL THROMBOPLASTIN TIME 29.5 secs (22-35.6); PROTHROMBIN TIME 10.4 secs (10.8-13.4)
[2023-10-16 14:41] LABS: LACTIC ACID 7.5 mmol/L (0.4-2.0)
[2023-10-16 14:45] LABS: ALANINE AMINOTRANSFERASE 63 U/L (12-78); ALBUMIN 3.3 g/dL (3.4-5.0); ALCOHOL, BLOOD 6 mg/dL (<10); ALKALINE PHOSPHATASE 119 U/L (50-136); ASPARTATE AMINOTRANSFERASE 120 U/L (15-37); BILIRUBIN,DIRECT 0.4 mg/dL (0.0-0.3); MAGNESIUM 1.6 mg/dL (1.8-2.4); PHOSPHORUS 2.8 mg/dL (2.5-4.9); TOTAL BILIRUBIN 1.5 mg/dL (0.0-1.0); TOTAL PROTEIN, SERUM 8.6 g/dL (6.4-8.2)
[2023-10-16] MEDS ORDERED: PIPERACILLIN/TAZOBACTAM 4.5 GM VIAL IV ONE (15:17)
[2023-10-16] MEDS: PIPERACILLIN/TAZOBACTAM 4.5 GM in DEXTROSE 5% 100 ML IV ONE (15:32)
[2023-10-16 15:47] LABS: CREATINE KINASE, TOTAL 1231 U/L (39-308)
[2023-10-16 16:18] LABS: APPEARANCE,URINE CLEAR (CLEAR); BILIRUBIN,URINE NEGATIVE (NEGATIVE); BLOOD, URINE 3+ (NEGATIVE); COLOR,URINE YELLOW (YELLOW); LEUKOCYTE ESTERASE ,URINE NEGATIVE (NEGATIVE); NITRITE, URINE NEGATIVE (NEGATIVE); PROTEIN,URINE 3+ (NEGATIVE); UGLUCOSE NEGATIVE (NEGATIVE); UROBILINOGEN,URINE 0.2 EU/dL (0.2 - 1)
[2023-10-16 16:38] LABS: BACTERIA,URINE None Seen /HPF (None Seen); MUCUS,URINE None Seen /LPF (None Seen); RBC,URINE 0-5 /HPF (0-5); SQUAMOUS EPITHELIAL CELL,UR None Seen /LPF (0-3 (FEW)); WBC,URINE 0-5 /HPF (0-5); YEAST,URINE None Seen /HPF (None Seen)
[2023-10-16 17:04] LABS: FLU A ANTIGEN negative (NEGATIVE); FLU B ANTIGEN NEGATIVE (NEGATIVE)
[2023-10-16 18:01] LABS: AMPHETAMINE, URINE NEGATIVE ng/ml (NEG <=1000); BARBITURATE, URINE NEGATIVE ng/ml (NEG <=200)
[2023-10-16 18:02] LABS: BENZODIAZEPINE, URINE POSITIVE ng/mL (NEG <=200); CANNABINOID, URINE NEGATIVE ng/mL (NEG <=50); COCAINE, URINE NEGATIVE ng/mL (NEG <=300); OPIATE, URINE NEGATIVE ng/mL (NEG <=2000); PHENCYCLIDINE SCREEN,URINE NEGATIVE ng/mL (NEG <=25)
[2023-10-16] MEDS: LORazepam 2 MG/ML VIAL IVP PRN (18:25)
[2023-10-16] MEDS ORDERED: ONDANSETRON 4 MG/2 ML VIAL IVP PRN (19:30)
[2023-10-16] MEDS ORDERED: LORazepam 2 MG/ML VIAL IM/IVP PRN (20:15)
[2023-10-16 21:18] VITALS: BP 141/69; PULSE 85; RESP 18; TEMP 98.9; O2SAT 97
[2023-10-16 21:28] VITALS: PULSE 102
[2023-10-16] MEDS: MORPHINE SULFATE 2 MG/ML SYR IVP PRN (21:32)
[2023-10-16 23:57] VITALS: PULSE 79
[2023-10-17] VITALS (7 sets, daily range): BP systolic 135–149; BP diastolic 67–85; PULSE 63–83; RESP 18–20; TEMP 97.4–99.7; O2SAT 95–98
[2023-10-17] MEDS: LORazepam 1 MG TAB PO PRN ×2 (00:40→13:01)
[2023-10-17 06:34] LABS: BASOPHILS # (AUTO) 0.1 K/uL (0.00-0.22); EOSINOPHILS # (AUTO) 0.1 K/uL (0-0.4); EOSINOPHILS % (AUTO) 1.1 % (0.0-4.0); HEMATOCRIT 37.5 % (36-52); HEMOGLOBIN 12.6 g/dL (12.0-18.0); LYMPHOCYTES # (AUTO) 1.4 K/uL (2.0-11.5); LYMPHOCYTES % (AUTO) 15.1 % (20.5-51.1); MEAN CORPUSCULAR HEMOGLOBIN 33 pg (27-31); MEAN CORPUSCULAR HGB CONC 34 g/dL (33-37); MEAN CORPUSCULAR VOLUME 97.6 fL (80-94); MONOCYTES # (AUTO) 0.6 K/uL (0.8-1.0); MONOCYTES % (AUTO) 6.5 % (1.7-9.3); NEUTROPHILS # (AUTO) 7.1 K/uL (1.8-7.7); NEUTROPHILS % (AUTO) 76.3 % (42.2-75.2); PLATELET COUNT (AUTO) 93 K/uL (140-450); RED BLOOD CELL COUNT(AUTO) 3.84 MIL/uL (4.20-6.10); RED CELL DISTRIBUTION WIDTH 14.3 % (11.6-13.7); WHITE BLOOD COUNT (AUTO) 9.3 K/uL (4.8-10.8)
[2023-10-17 06:53] LABS: ALBUMIN 2.8 g/dL (3.4-5.0); ANION GAP 12.9 (8-16); CALCIUM 8.2 mg/dL (8.5-10.1); CARBON DIOXIDE 26.1 mmol/L (21-32); CREATININE 0.9 mg/dL (0.6-1.3); TOTAL BILIRUBIN 2.1 mg/dL (0.0-1.0); TOTAL PROTEIN, SERUM 7.3 g/dL (6.4-8.2)
[2023-10-17 08:08] LABS: HEMOGLOBIN A1C 5.4 % (4.8-5.6); T4 (THYROXINE) 8.2 ug/dL (4.5-12.0)
[2023-10-17] MEDS: DOCUSATE SODIUM 100 MG GELCAP PO SCH (09:13)
[2023-10-17] MEDS ORDERED: POTASSIUM CHL 40 MEQ/ D5-1/2NS 1,000 ML IV ONE (09:55)
[2023-10-17] MEDS: POTASSIUM CHLORIDE 40 MEQ, LIDOCAINE 1% 25 MG in NACL 0.9% 250 ML IV SCH (11:09)
[2023-10-17] MEDS: PIPERACILLIN/TAZOBACTAM 3.375 GM in DEXTROSE 5% 50 ML IV SCH (14:31)
[2023-10-17] MEDS: MAG SULF 2000 MG/WATER PREMIX 50 ML IV SCH (14:45)
[2023-10-18] VITALS (8 sets, daily range): BP systolic 134–158; BP diastolic 81–94; PULSE 58–123; RESP 18; TEMP 97.3–100.1; O2SAT 95–100
[2023-10-18 06:46] LABS: BASOPHILS # (AUTO) 0.1 K/uL (0.00-0.22); BASOPHILS % (AUTO) 1.2 % (0.0-2.0); EOSINOPHILS # (AUTO) 0.1 K/uL (0-0.4); EOSINOPHILS % (AUTO) 1.7 % (0.0-4.0); HEMATOCRIT 41.3 % (36-52); HEMOGLOBIN 14.3 g/dL (12.0-18.0); LYMPHOCYTES # (AUTO) 1.6 K/uL (2.0-11.5); LYMPHOCYTES % (AUTO) 18.1 % (20.5-51.1); MEAN CORPUSCULAR HEMOGLOBIN 33 pg (27-31); MEAN CORPUSCULAR HGB CONC 35 g/dL (33-37); MEAN CORPUSCULAR VOLUME 96.5 fL (80-94); MONOCYTES # (AUTO) 0.5 K/uL (0.8-1.0); MONOCYTES % (AUTO) 6.1 % (1.7-9.3); NEUTROPHILS # (AUTO) 6.4 K/uL (1.8-7.7); NEUTROPHILS % (AUTO) 72.9 % (42.2-75.2); PLATELET COUNT (AUTO) 103 K/uL (140-450); RED BLOOD CELL COUNT(AUTO) 4.28 MIL/uL (4.20-6.10); WHITE BLOOD COUNT (AUTO) 8.7 K/uL (4.8-10.8)
[2023-10-18 08:13] LABS: ANION GAP 15.8 (8-16); CALCIUM 8.8 mg/dL (8.5-10.1); CARBON DIOXIDE 23.4 mmol/L (21-32); POTASSIUM 3.2 mmol/L (3.5-5.1)
[2023-10-18 08:18] LABS: ALBUMIN 2.9 g/dL (3.4-5.0); TOTAL BILIRUBIN 1.7 mg/dL (0.0-1.0); TOTAL PROTEIN, SERUM 7.7 g/dL (6.4-8.2)
[2023-10-18] MEDS: PANTOPRAZOLE 40 MG INJ VIAL IVP SCH (10:00)
[2023-10-18] MEDS: levETIRAcetam 500 MG TAB PO SCH (10:01)
[2023-10-18] MEDS: FOLIC ACID 1 MG TAB PO SCH (10:01)
[2023-10-18] MEDS: MULTIVITAMIN 1 TAB PO SCH (10:01)
[2023-10-18] MEDS: THIAMINE 100 MG TAB PO SCH (10:01)
[2023-10-18] MEDS: hydrALAZINE 20 MG/ML VIAL IVP PRN (11:01)
[2023-10-18] MEDS: POTASSIUM CHLORIDE 40 MEQ, LIDOCAINE 1% 25 MG in NACL 0.9% 250 ML IV SCH (11:03)
[2023-10-18] MEDS: HYDROcodone/APAP 5/325 MG 1 TAB TAB PO PRN (11:44)
[2023-10-18] MEDS: NICOTINE TRANSD SYS 14 MG/24 HR PATCH TD SCH (15:42)
[2023-10-18] MEDS: MAG SULF 2000 MG/WATER PREMIX 50 ML IV SCH (17:52)
[2023-10-18] MEDS: ZOLPIDEM 5 MG TAB PO PRN (22:12)
[2023-10-19] VITALS: BP 131/70; PULSE 88; RESP 18; TEMP 98.1; O2SAT 97
[2023-10-19 04:00] VITALS: BP 130/72; PULSE 102; PULSE 119; RESP 18; TEMP 98.4; O2SAT 95
[2023-10-19 05:36] LABS: BASOPHILS # (AUTO) 0.1 K/uL (0.00-0.22); EOSINOPHILS # (AUTO) 0.2 K/uL (0-0.4); EOSINOPHILS % (AUTO) 1.6 % (0.0-4.0); HEMOGLOBIN 14.7 g/dL (12.0-18.0); LYMPHOCYTES # (AUTO) 1.8 K/uL (2.0-11.5); MONOCYTES # (AUTO) 0.7 K/uL (0.8-1.0)
[2023-10-19 05:42] LABS: BASOPHILS % (AUTO) 0.7 % (0.0-2.0); HEMATOCRIT 42.3 % (36-52); MEAN CORPUSCULAR HEMOGLOBIN 34 pg (27-31); MEAN CORPUSCULAR HGB CONC 35 g/dL (33-37); MEAN CORPUSCULAR VOLUME 97.1 fL (80-94); NEUTROPHILS # (AUTO) 7.8 K/uL (1.8-7.7); NEUTROPHILS % (AUTO) 73.7 % (42.2-75.2); PLATELET COUNT (AUTO) 142 K/uL (140-450); RED BLOOD CELL COUNT(AUTO) 4.36 MIL/uL (4.20-6.10); RED CELL DISTRIBUTION WIDTH 13.8 % (11.6-13.7); WHITE BLOOD COUNT (AUTO) 10.5 K/uL (4.8-10.8)
[2023-10-19 06:20] LABS: ALBUMIN 3.1 g/dL (3.4-5.0); ANION GAP 17.6 (8-16); CALCIUM 9.2 mg/dL (8.5-10.1); CARBON DIOXIDE 23.8 mmol/L (21-32); CREATININE 1.1 mg/dL (0.6-1.3); POTASSIUM 3.4 mmol/L (3.5-5.1); TOTAL PROTEIN, SERUM 8.2 g/dL (6.4-8.2)
[2023-10-19 08:00] VITALS: BP 151/92; PULSE 89; RESP 18; TEMP 97.5; O2SAT 98
[2023-10-19] MEDS: NICOTINE TRANSD SYS 14 MG/24 HR PATCH TD SCH (08:36)
[2023-10-19 12:00] VITALS: BP 145/89; PULSE 106; RESP 18; TEMP 97.4; O2SAT 99
[2023-10-19] MEDS ORDERED: LIP80 PO (12:01)
[2023-10-19] MEDS ORDERED: CLON-575 PO (12:01)
[2023-10-19] MEDS ORDERED: ALBU10.7 INH (12:01)
[2023-10-19] MEDS ORDERED: LEVE1000 PO (12:01)
[2023-10-19] MEDS ORDERED: LEVO750T75 PO (12:08)
[2023-10-19 12:55] VITALS: BP 145/89; PULSE 106; RESP 18; TEMP 97.4
[2023-10-19] MEDS: POTASSIUM CHLORIDE 10 MEQ TABER PO ONE (13:20)
[2023-10-20] MEDS ORDERED: POTASSIUM CHLORIDE 10 MEQ TABER PO SCH (09:00)
== END 2023-10-19 14:32 | disposition home or self-care (01) | DRG 720 ==
LOC: MED 13:02 → MTU 16:59
PROVIDERS: ADMIT Student in an Organized Health Care Education/Training Program; ATTEND Student in an Organized Health Care Education/Training Program
PROC: 4A10X4Z Monitoring of Central Nervous Electrical Activity, External Approach (ICD-10-PCS; principal; 2023-10-18)
DX: A41.9 Sepsis, unspecified organism (principal); J69.0 Pneumonitis due to inhalation of food and vomit; J15.9 Unspecified bacterial pneumonia; E44.1 Mild protein-calorie malnutrition; G40.909 Epilepsy, unspecified, not intractable, without status epilepticus; E87.6 Hypokalemia; E83.42 Hypomagnesemia; F10.10 Alcohol abuse, uncomplicated; Z20.822 Contact with and (suspected) exposure to COVID-19; Z68.28 Body mass index [BMI] 28.0-28.9, adult
CPT/HCPCS: 36415; 70450; 70486; 71045; 72125; 76700; 80048; 80053; 80076; 80305; 81001; 82009; 82140; 82550; 82553; 83036; 83605; 83735; 84100; 84436; 84479; 84484; 85025; 85610; 85730; 87040; 87081; 87086; 93005; 95816; 96365; 96375; 99291; C9113; G0482; J0360; J1953; J2001; J2060; J2270; J2543; J3475; J3480; J7030; J7060; Q0092